=== PATIENT | female | born 1955 | race African-American/Black ===

== ENCOUNTER 2020-02-12 09:52 | Outpatient (CLI) | payer MEDICARE, SELFPAY ==
--- NOTE | ~2020-02-12 | MR_ITS ---
MR breast BI wo/w con 02/12/2020 12:02 CDT INDICATION: Left breast cancer TECHNIQUE: MRI of the breasts perform using standard protocol pre-and post IV contrast with the follo wing sequences: Axial T2 STIR, axial T1, axial vibrant T1 with fat suppression precontrast and multip hasic postcontrast. COMPARISON: No prior studies for comparison. FINDINGS: There are no abnormalities on the precontrast sequences. There is moderate background paren chymal enhancement. No enhancing lesions following contrast administration. No areas of enhancement meeting threshold criteria on CAD analysis. No evidence of signal abnormalities in the axillary or internal mammary node distributions. LEFT BREAST: There is moderate background parenchymal enhancement. There is an enhancing mass in the upper outer quadrant of the left breast 8.2 cm from the nipple and 0.84 cm from the skin surface. Thi s mass measures 2 x 1.5 x 1.6 cm and exhibits rapid washout enhancement. This likely corresponds to t he patient's known malignancy. There is an adjacent area of nonmass-like enhancement with clumped nod ular configuration measuring 1.9 x 0.6 x 2.4 cm in the lower outer quadrant of the left breast, 9.7 c m from the nipple and 1.2 cm from the skin surface. There is rapid washout enhancement. This area of abnormality is suspicious for local spread of malignancy. In the upper outer quadrant of the left casimiro ast at 1:00 anteriorly there is a mass measuring 1.6 x 1.3 x 1.6 cm, 5.8 cm from the nipple and 0.78 cm from the skin surface. There is rapid persistent enhancement. There are multiple borderline size l eft axillary lymph nodes some of which appear to have effacement of the fatty hilum. Cannot exclude m etastatic disease. IMPRESSION: 1: Right breast: Negative. No evidence of malignancy. BI-RADS category 1. Recommend annual mammo graphy follow-up. 2: Left breast: Abnormal 2 cm mass upper outer quadrant of the left breast with rapid washout enhanc ement and irregular margins, likely corresponding to the known malignancy. There is clumped nodular e nhancement in the lower outer quadrant of the left breast adjacent to the dominant mass, suspicious f or local spread of tumor. There are borderline sized axillary lymph nodes with effacement of central fatty hilum and a few of the lymph nodes, suspicious for metastatic disease. 3: Left breast: 1.6 cm round homogeneously enhancing mass upper outer quadrant of the left breast an teriorly, likely benign. Recommend comparison to outside prior mammograms and ultrasound. BI-RADS category 6- Known biopsy proven malignancyy. Reviewed, dictated and finalized at location A. IMPRESSION: 1: Right breast: Negative. No evidence of malignancy. BI-RADS category 1. Recommend annual mammography follow-up. 2: Left breast: Abnormal 2 cm mass upper outer quadrant of the left breast wit h rapid washout enhancement and irregular margins, likely corresponding to the known malignancy. There is clumped nodular enhancement in the lower outer quadr ant of the left breast adjacent to the dominant mass, suspicious for local spre ad of tumor. There are borderline sized axillary lymph nodes with effacement of central fatty hilum and a few of the lymph nodes, suspicious for metastatic di sease. 3: Left breast: 1.6 cm round homogeneously enhancing mass upper outer quadrant of the left breast anteriorly, likely benign. Recommend comparison to outside prior mammograms and ultrasound. BI-RADS category 6- Known biopsy proven malignancyy.
[2020-02-12 10:26] LABS: Estimated Glomerular Filt Rate > 60
== END 2020-02-12 09:53 | disposition home or self-care (01) ==
PROVIDERS: PCP Internal Medicine; Visit Provider Internal Medicine Hematology & Oncology
DX: C50.412 Malignant neoplasm of upper-outer quadrant of left female breast (principal); Z17.0 Estrogen receptor positive status [ER+]
CPT/HCPCS: 36415; 77049; A9577; C8908

== ENCOUNTER 2020-08-27 08:03 | Outpatient (CLI) | payer MEDICARE, SELFPAY ==
[2020-08-27 09:02] LABS: Basophils Percent Auto 0.5 % (0.2-1.2); Eosinophils Absolute Auto 0.1 K/mm3 (0-0.3); Eosinophils Percent Auto 2.2 % (0-4.4); Hematocrit 39.4 % (37.0-47.0); Hemoglobin 12.5 g/dL (12.0-15.0); Immature Granulocyte Absolute 0.02 K/mm3 (0.00-0.031); Immature Granulocyte Percent A 0.3 % (0-0.5); Lymphocytes Absolute Auto 2.46 K/mm3 (0.9-3.2); Lymphocytes Percent Auto 39.1 % (18.3-44.2); Mean Corpuscular HGB Conc 31.7 g/dl (32-36); Mean Corpuscular Hemoglobin 29.5 pg (26-34); Mean Corpuscular Volume 92.9 fl (80-100); Mean Platelet Volume 9.9 fl (7.4-10.4); Monocytes Absolute Auto 0.5 K/mm3 (0.1-0.6); Monocytes Percent Auto 8.4 % (2.6-8.5); Neutrophils Absolute Auto 3.1 K/mm3 (1.3-6.7); Neutrophils Percent Auto 49.5 % (45.5-73.1); Platelet Count Result 225 k/mm3 (150-375); Red Blood Count 4.24 M/mm3 (4.2-5.4); Red Cell Distribution Width 13.2 % (11.5-14.5); White Blood Count 6.3 K/mm3 (4.5-10.0)
[2020-08-27 12:15] LABS: Add Urine Microscopic? YES; Appearance Urine Clear (Clear); Bacteria Urine Trace /hpf; Bilirubin Urine Negative (Negative); Blood Urine Negative (Negative); Color Urine Yellow (Yellow); Glucose Urine UA Negative (Negative); Ketones Urine Negative (Negative); Leukocyte Esterase Ur Negative LEU/UL (NEGATIVE); Mucus Urine Rare /lpf; Nitrate Urine Negative (Negative); Protein Urine 1+ mg/dL (Negative); RBC Urine 0-2 /hpf (0-2); Specific Grav Ur 1.028 (1.001-1.035); Squamous Epithelial Cell Urine Few /hpf (Few); Urobilinogen Urine Negative mg/dL (<2.0)
[2020-08-27 12:22] LABS: Alanine Aminotransferase 16 U/L (4-35); Albumin Level 3.9 g/dL (3.5-5.1); Alkaline Phosphatase 66 U/L (38-126); Anion Gap 4 mmol/L (8-16); Aspartate Amino Transferase 24 U/L (14-36); Bilirubin,Total 0.4 mg/dL (0.2-1.3); Blood Urea Nitrogen 19 mg/dL (7-17); Calcium 9.3 mg/dL (8.4-10.2); Carbon Dioxide 33 mmol/L (22-30); Chloride 101 mmol/L (98-107); Cholesterol 205 mg/dL (0-200); Estimated Glomerular Filt Rate > 60; Glucose 97 mg/dL (65-105); HDL Direct 63 mg/dL; Potassium 4.2 mmol/L (3.4-5.0); Sodium 138 mmol/L (137-145); Triglycerides 68 mg/dL (<150)
[2020-08-27 12:23] LABS: Hemoglobin A1C 5.8 % (<5.7)
[2020-08-27 12:33] LABS: LDL Cholesterol Direct 126 mg/dL
[2020-08-27 13:22] LABS: Vitamin D 25 Hydroxy 18.4 ng/mL
[2020-08-28 09:19] LABS: Blood Urea Nitrogen 18 mg/dL (8-26); Carbon Dioxide 31 mmol/L (22-30); Chloride 102 mmol/L (98-109); Estimated Glomerular Filt Rate > 60; Potassium 3.9 mmol/L (3.5-4.9); Sodium 142 mmol/L (138-146)
[2020-08-28 09:20] LABS: Glucose 95 mg/dL (70-105)
[2020-09-01 14:05] LABS: CA 15-3 7 U/mL (<32)
== END 2020-08-27 08:04 | disposition home or self-care (01) ==
PROVIDERS: PCP Internal Medicine; Visit Provider Internal Medicine Hematology & Oncology
DX: C50.412 Malignant neoplasm of upper-outer quadrant of left female breast (principal); Z17.0 Estrogen receptor positive status [ER+]; I10 Essential (primary) hypertension; R73.01 Impaired fasting glucose
CPT/HCPCS: 36415; 73030; 80048; 80053; 80061; 81001; 82306; 83036; 85025; 86300

== ENCOUNTER 2020-08-27 12:47 | Outpatient (CLI) | payer MEDICARE, SELFPAY ==
--- NOTE | ~2020-08-27 | XR_ITS ---
XR shoulder LT min 2V DATE: 08/27/2020 13:16 INDICATION: Malignant neoplasm of upper outer quadrant of left breast. Left shoulder pain. TECHNIQUE: 4 views COMPARISON: None FINDINGS: Old left fifth and sixth rib fracture deformities. No fracture or dislocation of the left shoulder. No periosteal reaction or bone destruction. There is normal alignment at the acromioclavicular and glenohumeral joints. No abnormal left shoulder soft ti ssue calcification. IMPRESSION: No significant abnormality of the left shoulder Reviewed, dictated and finalized at location A. TUB TENDER
== END 2020-08-27 12:48 | disposition home or self-care (01) ==
PROVIDERS: PCP Internal Medicine; Visit Provider Nurse Practitioner Adult Health
DX: C50.412 Malignant neoplasm of upper-outer quadrant of left female breast (principal); Z17.0 Estrogen receptor positive status [ER+]
CPT/HCPCS: 73030

== ENCOUNTER 2020-09-07 10:16 | Outpatient (CLI) | payer MEDICARE, SELFPAY ==
--- NOTE | ~2020-09-07 | MR_ITS ---
EXAMINATION: MR shoulder LT wo/w con DATE: 09/07/2020 12:32 INDICATION: Malignant neoplasm of upper outer quadrant of left breast. Left shoulder pain and weaknes s. TECHNIQUE: Magnetic resonance imaging (MRI) of the left shoulder was performed without and with 16 mm MultiHance intravenous contrast. Sequences included axial T1-weighted FS FSE, T1-weighted FSE, and P D-weighted FS FSE, coronal oblique PD-weighted FS FSE and T2-weighted FS FSE, sagittal oblique T2-charu ghted FS FSE and T1-weighted FSE, and axial and coronal oblique postcontrast T1-weighted FS FSE. COMPARISON: Left shoulder radiograph 08/27/2020 FINDINGS: Coracoacromial arch: The acromion undersurface is curved in morphology (type II). There is severe acromioclavicular joint osteoarthritis including inferior directed osteophytes. There is moderate subacromial/subdeltoid burs itis with synovitis. Rotator cuff: There is a full-thickness tear of supraspinatus tendon measuring 14 mm anterior to posterior by 25 mm proximal to distal. There is severe infraspinatus tendinopathy. Teres minor tendon is normal. There is mild subscapularis tendinopathy. There is no asymmetric fatty atrophy of the rotator cuff muscle b ellerik. Biceps tendon and glenoid labrum: Biceps tendon is in bicipital groove. There is a partial tear of biceps tendon, which is not well-vis ualized due to motion artifact. Fluid: There is a small glenohumeral joint effusion with synovitis. Bones/cartilage: The glenoid cartilage and humeral head cartilage are normal, but motion artifact decreases sensitivit y. IMPRESSION: 1. Full-thickness rotator cuff tear. 2. Partial tear of proximal biceps tendon. 3. Severe acromioclavicular joint osteoarthritis. 4. Small glenohumeral joint effusion and moderate subacromial/subdeltoid bursitis with synovitis. Reviewed, dictated and finalized at location A. SPECIALIST IMPRESSION: 1. Full-thickness rotator cuff tear. 2. Partial tear of proximal biceps tendon. 3. Severe acromioclavicular joint osteoarthritis. 4. Small glenohumeral joint effusion and moderate subacromial/subdeltoid bursit is with synovitis.
== END 2020-09-07 10:17 | disposition home or self-care (01) ==
LOC: ANHIMG 10:25
PROVIDERS: PCP Internal Medicine; Visit Provider Nurse Practitioner Adult Health
DX: C50.412 Malignant neoplasm of upper-outer quadrant of left female breast (principal); Z17.0 Estrogen receptor positive status [ER+]; M19.012 Primary osteoarthritis, left shoulder; M25.412 Effusion, left shoulder; M75.122 Complete rotator cuff tear or rupture of left shoulder, not specified as traumatic
CPT/HCPCS: 73223; A9577

== ENCOUNTER 2021-01-28 08:24 | Outpatient (CLI) | payer MEDICARE, SELFPAY ==
[2021-01-28 08:50] LABS: Basophils Percent Auto 0.4 % (0.2-1.2); Eosinophils Absolute Auto 0.1 K/mm3 (0-0.3); Eosinophils Percent Auto 1.8 % (0-4.4); Hematocrit 39.3 % (37.0-47.0); Hemoglobin 12.5 g/dL (12.0-15.0); Immature Granulocyte Absolute 0.02 K/mm3 (0.00-0.031); Immature Granulocyte Percent A 0.4 % (0-0.5); Lymphocytes Absolute Auto 2.42 K/mm3 (0.9-3.2); Lymphocytes Percent Auto 42.8 % (18.3-44.2); Mean Corpuscular HGB Conc 31.8 g/dl (32-36); Mean Corpuscular Hemoglobin 29.8 pg (26-34); Mean Corpuscular Volume 93.6 fl (80-100); Mean Platelet Volume 10.2 fl (7.4-10.4); Monocytes Absolute Auto 0.4 K/mm3 (0.1-0.6); Monocytes Percent Auto 6.9 % (2.6-8.5); Neutrophils Absolute Auto 2.7 K/mm3 (1.3-6.7); Neutrophils Percent Auto 47.7 % (45.5-73.1); Platelet Count Result 244 k/mm3 (150-375); Red Cell Distribution Width 13.3 % (11.5-14.5); White Blood Count 5.7 K/mm3 (4.5-10.0)
[2021-01-28 10:40] LABS: Alanine Aminotransferase 13 U/L (4-35); Albumin Level 3.9 g/dL (3.5-5.1); Alkaline Phosphatase 60 U/L (38-126); Anion Gap 5 mmol/L (8-16); Aspartate Amino Transferase 19 U/L (14-36); Bilirubin,Total 0.2 mg/dL (0.2-1.3); Blood Urea Nitrogen 20 mg/dL (7-17); Calcium 9.6 mg/dL (8.4-10.2); Carbon Dioxide 32 mmol/L (22-30); Chloride 106 mmol/L (98-107); Estimated Glomerular Filt Rate > 60; Glucose 108 mg/dL (65-105); Potassium 4.6 mmol/L (3.4-5.0); Sodium 143 mmol/L (137-145)
[2021-01-31 08:32] LABS: CA 15-3 8 U/mL (<32)
== END 2021-01-28 08:25 | disposition home or self-care (01) ==
LOC: ANHLAB 08:26
PROVIDERS: PCP Internal Medicine; Visit Provider Internal Medicine Hematology & Oncology
DX: C50.412 Malignant neoplasm of upper-outer quadrant of left female breast (principal); Z17.0 Estrogen receptor positive status [ER+]
CPT/HCPCS: 36415; 80053; 85025; 86300

== ENCOUNTER 2021-08-23 09:31 | Outpatient (CLI) | payer MEDICARE, SELFPAY ==
[2021-08-23 09:53] LABS: Basophils Percent Auto 0.6 % (0.2-1.2); Eosinophils Absolute Auto 0.1 K/mm3 (0-0.3); Eosinophils Percent Auto 1.6 % (0-4.4); Hematocrit 39.7 % (37.0-47.0); Hemoglobin 12.1 g/dL (12.0-15.0); Immature Granulocyte Absolute 0.02 K/mm3 (0.00-0.031); Immature Granulocyte Percent A 0.3 % (0-0.5); Lymphocytes Absolute Auto 2.44 K/mm3 (0.9-3.2); Lymphocytes Percent Auto 38.1 % (18.3-44.2); Mean Corpuscular HGB Conc 30.5 g/dl (32-36); Mean Corpuscular Hemoglobin 29.4 pg (26-34); Mean Corpuscular Volume 96.6 fl (80-100); Mean Platelet Volume 9.7 fl (7.4-10.4); Monocytes Absolute Auto 0.4 K/mm3 (0.1-0.6); Monocytes Percent Auto 6.2 % (2.6-8.5); Neutrophils Absolute Auto 3.4 K/mm3 (1.3-6.7); Neutrophils Percent Auto 53.2 % (45.5-73.1); Platelet Count Result 232 k/mm3 (150-375); Red Blood Count 4.11 M/mm3 (4.2-5.4); Red Cell Distribution Width 13.6 % (11.5-14.5); White Blood Count 6.4 K/mm3 (4.5-10.0)
[2021-08-23 10:56] LABS: Alanine Aminotransferase 16 U/L (4-35); Albumin Level 3.9 g/dL (3.5-5.1); Alkaline Phosphatase 68 U/L (38-126); Anion Gap 5 mmol/L (8-16); Aspartate Amino Transferase 19 U/L (14-36); Bilirubin,Total 0.3 mg/dL (0.2-1.3); Blood Urea Nitrogen 18 mg/dL (7-17); Calcium 9.2 mg/dL (8.4-10.2); Carbon Dioxide 31 mmol/L (22-30); Chloride 99 mmol/L (98-107); Estimated Glomerular Filt Rate > 60; Glucose 147 mg/dL (65-110); Potassium 4.2 mmol/L (3.4-5.0); Sodium 135 mmol/L (137-145)
[2021-08-26 05:50] LABS: CA 15-3 7 U/mL (<32)
== END 2021-08-23 09:32 | disposition home or self-care (01) ==
LOC: ANHLAB 09:35
PROVIDERS: PCP Internal Medicine; Visit Provider Internal Medicine Hematology & Oncology
DX: C50.412 Malignant neoplasm of upper-outer quadrant of left female breast (principal); Z17.0 Estrogen receptor positive status [ER+]
CPT/HCPCS: 36415; 80053; 85025; 86300

== ENCOUNTER 2021-10-06 08:38 | Outpatient (CLI) | payer MEDICARE, SELFPAY ==
[2021-10-06 09:01] LABS: Basophils Percent Auto 0.5 % (0.2-1.2); Eosinophils Absolute Auto 0.1 K/mm3 (0-0.3); Eosinophils Percent Auto 2.4 % (0-4.4); Hematocrit 39.1 % (37.0-47.0); Hemoglobin 12.1 g/dL (12.0-15.0); Immature Granulocyte Absolute 0.02 K/mm3 (0.00-0.031); Immature Granulocyte Percent A 0.3 % (0-0.5); Lymphocytes Absolute Auto 2.29 K/mm3 (0.9-3.2); Lymphocytes Percent Auto 39.7 % (18.3-44.2); Mean Corpuscular HGB Conc 30.9 g/dl (32-36); Mean Corpuscular Hemoglobin 29.4 pg (26-34); Mean Corpuscular Volume 95.1 fl (80-100); Mean Platelet Volume 10.2 fl (7.4-10.4); Monocytes Absolute Auto 0.4 K/mm3 (0.1-0.6); Monocytes Percent Auto 6.9 % (2.6-8.5); Neutrophils Absolute Auto 2.9 K/mm3 (1.3-6.7); Neutrophils Percent Auto 50.2 % (45.5-73.1); Platelet Count Result 225 k/mm3 (150-375); Red Blood Count 4.11 M/mm3 (4.2-5.4); Red Cell Distribution Width 13.5 % (11.5-14.5); White Blood Count 5.8 K/mm3 (4.5-10.0)
[2021-10-06 10:09] LABS: Cholesterol 193 mg/dL (0-200); HDL Direct 56 mg/dL; Triglycerides 52 mg/dL (<150)
[2021-10-06 10:13] LABS: Alanine Aminotransferase 17 U/L (4-35); Alkaline Phosphatase 60 U/L (38-126); Anion Gap 6 mmol/L (8-16); Aspartate Amino Transferase 33 U/L (14-36); Bilirubin,Total 0.3 mg/dL (0.2-1.3); Blood Urea Nitrogen 19 mg/dL (7-17); Calcium 9.3 mg/dL (8.4-10.2); Carbon Dioxide 32 mmol/L (22-30); Chloride 102 mmol/L (98-107); Estimated Glomerular Filt Rate > 60; Glucose 102 mg/dL (65-110); Hemoglobin A1C 5.9 % (<5.7); Potassium 4.2 mmol/L (3.4-5.0); Sodium 140 mmol/L (137-145)
[2021-10-06 10:21] LABS: LDL Cholesterol Direct 105 mg/dL
[2021-10-09 05:48] LABS: CA 15-3 9 U/mL (<32)
== END 2021-10-06 08:39 | disposition home or self-care (01) ==
LOC: ANHLAB 08:44
PROVIDERS: PCP Internal Medicine; Visit Provider Internal Medicine Hematology & Oncology
DX: C50.412 Malignant neoplasm of upper-outer quadrant of left female breast (principal); Z17.0 Estrogen receptor positive status [ER+]; Z13.1 Encounter for screening for diabetes mellitus; Z13.220 Encounter for screening for lipoid disorders; R73.01 Impaired fasting glucose; Z51.81 Encounter for therapeutic drug level monitoring; Z79.899 Other long term (current) drug therapy
CPT/HCPCS: 36415; 80053; 80061; 83036; 85025; 86300

== ENCOUNTER 2021-12-23 08:57 | Outpatient (CLI) | payer MEDICARE, SELFPAY ==
[2021-12-23 09:26] LABS: Basophils Percent Auto 0.5 % (0.2-1.2); Eosinophils Absolute Auto 0.1 K/mm3 (0-0.3); Eosinophils Percent Auto 2.2 % (0-4.4); Hematocrit 39.5 % (37.0-47.0); Hemoglobin 12.1 g/dL (12.0-15.0); Immature Granulocyte Absolute 0.01 K/mm3 (0.00-0.031); Immature Granulocyte Percent A 0.2 % (0-0.5); Lymphocytes Absolute Auto 2.43 K/mm3 (0.9-3.2); Lymphocytes Percent Auto 41.1 % (18.3-44.2); Mean Corpuscular HGB Conc 30.6 g/dl (32-36); Mean Corpuscular Hemoglobin 29.3 pg (26-34); Mean Corpuscular Volume 95.6 fl (80-100); Mean Platelet Volume 9.9 fl (7.4-10.4); Monocytes Absolute Auto 0.4 K/mm3 (0.1-0.6); Monocytes Percent Auto 7.1 % (2.6-8.5); Neutrophils Absolute Auto 2.9 K/mm3 (1.3-6.7); Neutrophils Percent Auto 48.9 % (45.5-73.1); Platelet Count Result 237 k/mm3 (150-375); Red Blood Count 4.13 M/mm3 (4.2-5.4); Red Cell Distribution Width 13.6 % (11.5-14.5); White Blood Count 5.9 K/mm3 (4.5-10.0)
[2021-12-23 10:58] LABS: Alanine Aminotransferase 14 U/L (4-35); Albumin Level 3.9 g/dL (3.5-5.1); Alkaline Phosphatase 58 U/L (38-126); Anion Gap 5 mmol/L (8-16); Aspartate Amino Transferase 24 U/L (14-36); Bilirubin,Total 0.3 mg/dL (0.2-1.3); Blood Urea Nitrogen 19 mg/dL (7-17); Calcium 9.1 mg/dL (8.4-10.2); Carbon Dioxide 30 mmol/L (22-30); Chloride 103 mmol/L (98-107); Estimated Glomerular Filt Rate > 60; Glucose 97 mg/dL (65-110); Sodium 138 mmol/L (137-145)
[2021-12-26 12:12] LABS: CA 15-3 7 U/mL (<32)
== END 2021-12-23 08:58 | disposition home or self-care (01) ==
PROVIDERS: PCP Internal Medicine; Visit Provider Internal Medicine Hematology & Oncology
DX: C50.412 Malignant neoplasm of upper-outer quadrant of left female breast (principal); Z17.0 Estrogen receptor positive status [ER+]
CPT/HCPCS: 36415; 80053; 85025; 86300

== ENCOUNTER 2022-06-20 09:06 | Outpatient (CLI) | payer MEDICARE, SELFPAY ==
[2022-06-20 09:39] LABS: Basophils Absolute Auto 0.1 K/mm3 (0.0-0.1); Basophils Percent Auto 0.9 % (0.2-1.2); Eosinophils Absolute Auto 0.2 K/mm3 (0-0.3); Eosinophils Percent Auto 3.3 % (0-4.4); Hematocrit 38.5 % (37.0-47.0); Immature Granulocyte Absolute 0.03 K/mm3 (0.00-0.031); Immature Granulocyte Percent A 0.4 % (0-0.5); Lymphocytes Absolute Auto 3.01 K/mm3 (0.9-3.2); Lymphocytes Percent Auto 43.2 % (18.3-44.2); Mean Corpuscular HGB Conc 31.2 g/dl (32-36); Mean Corpuscular Hemoglobin 29.3 pg (26-34); Mean Corpuscular Volume 93.9 fl (80-100); Monocytes Absolute Auto 0.4 K/mm3 (0.1-0.6); Monocytes Percent Auto 6.2 % (2.6-8.5); Neutrophils Absolute Auto 3.2 K/mm3 (1.3-6.7); Platelet Count Result 246 k/mm3 (150-375); Red Cell Distribution Width 13.1 % (11.5-14.5)
[2022-06-20 11:59] LABS: Alanine Aminotransferase 19 U/L (6-35); Alkaline Phosphatase 66 U/L (38-126); Anion Gap 7 mmol/L (8-16); Aspartate Amino Transferase 24 U/L (14-36); Bilirubin,Total 0.2 mg/dL (0.2-1.3); Blood Urea Nitrogen 17 mg/dL (7-17); Calcium 9.3 mg/dL (8.4-10.2); Carbon Dioxide 30 mmol/L (22-30); Chloride 103 mmol/L (98-107); Estimated Glomerular Filt Rate > 60; Glucose 103 mg/dL (65-110); Potassium 4.3 mmol/L (3.4-5.0); Sodium 140 mmol/L (137-145)
[2022-06-22 12:54] LABS: CA 15-3 10 U/mL (<32)
== END 2022-06-20 09:07 | disposition home or self-care (01) ==
LOC: ANHLAB 09:08
PROVIDERS: PCP Internal Medicine; Visit Provider Internal Medicine Hematology & Oncology
DX: C50.412 Malignant neoplasm of upper-outer quadrant of left female breast (principal); Z17.0 Estrogen receptor positive status [ER+]
CPT/HCPCS: 36415; 80053; 85025; 86300

== ENCOUNTER 2023-02-28 08:40 | Outpatient (CLI) | payer MEDICARE, SELFPAY ==
--- NOTE | ~2023-02-28 | DEXA_ITS ---
Bone Density Report Name: ZAK ADAMS Age: 67 Sex: Female Ethnicity: Black Date of : 1955 Indication: postmenopausal; screening for osteoporosis; cancer; Referring Provider: PHYLLIS FREEMAN Study: Bone densitometry was performed. Exam Date: February 28, 2023 Accession number: [id number] Bone Density: Region BMD T-score Z-score Classification AP Spine(L1-L4) 0.910 -1.2 0.1 Osteopenia Femoral Neck (Left) 0.808 -0.4 0.4 Normal Total Hip (Left) 1.009 0.5 1.0 Normal Femoral Neck (Right) 0.771 -0.7 0.1 Normal Total Hip (Right) 1.017 0.6 1.0 Normal Total Hip Mean 1.013 0.6 1.0 Normal World Health Organization criteria for BMD impression classify patients as: Normal (T-score at or above -1.0), Osteopenia (T-score between -1.0 and -2.5), or Osteoporosis (T-score at or below -2.5). 10-year Fracture Risk(1): Major Osteoporotic Fracture 3.4% Hip Fracture 0.3% Reported Risk Factors: [place] ([place]), Neck BMD=0.771, BMI=34.2 (1) FRAX(R) Version 3.08. Fracture probability calculated for an untreated patient. Fracture probability may be lower if the patient has received treatment. Clinical Information Provided by Patient: Has used the following medications: Calcium Has the following medical conditions: Cancer Patient maximum height was 63 Menopause Age: 50 Onset of menses at age 13 Number of children 7 Impression: The patient has low bone mass, based on the Total Spine T-score. The patient has an estimated ten-year risk of hip fracture of 0.3% and an estimated ten-year risk of major fracture of 3.4%, based on the WHO FRAX algorithm. Discussion: BONE DENSITY IS LOW AT ONE OR MORE SKELETAL SITES. This patient's lowest T-score is low at one or more skeletal sites. It meets the World Health Organization's (WHO) criteria for ?low bone mass? (T-score between -1.0 and -2.5). The patient's 10-year risk of fracture as calculated by FRAX is less than the threshold where pharmacological therapy is recommended by the National Osteoporosis Foundation (NOF). However, all treatment decisions require clinical judgment and consideration of individual patient factors, including patient preferences, comorbidities, previous drug use, risk factors not captured in the FRAX model (e.g., frailty, falls, vitamin D deficiency, increased bone turnover, interval significant decline in bone density) and possible under or overestimation of fracture risk by FRAX. The patient should follow a healthful lifestyle (good nutrition with adequate calcium and vitamin D, and appropriate weight-bearing exercise). Follow-Up: Consider repeating this study in 2 to 3 years to reassess this patient's status, or sooner if there is some new clinical indication. Reported by: ANDRES on 02/28/2023 9:13:00 AM.
== END 2023-02-28 08:41 | disposition home or self-care (01) ==
PROVIDERS: PCP Internal Medicine; Visit Provider Internal Medicine
DX: Z78.0 Asymptomatic menopausal state (principal); M85.88 Other specified disorders of bone density and structure, other site
CPT/HCPCS: 77080

== ENCOUNTER 2023-04-29 08:28 | Outpatient (CLI) | payer MEDICARE, SELFPAY ==
[2023-04-29 09:11] LABS: Alanine Aminotransferase 19 U/L (6-35); Alkaline Phosphatase 59 U/L (38-126); Anion Gap 3 mmol/L (8-16); Aspartate Amino Transferase 38 U/L (14-36); Bilirubin,Total 0.4 mg/dL (0.2-1.3); Blood Urea Nitrogen 16 mg/dL (7-17); Calcium 9.1 mg/dL (8.4-10.2); Carbon Dioxide 33 mmol/L (22-30); Chloride 101 mmol/L (98-107); Cholesterol 193 mg/dL (0-200); Estimated Glomerular Filt Rate > 60; Glucose 98 mg/dL (65-110); HDL Direct 54 mg/dL; Phosphorus 4.1 mg/dL (2.5-4.5); Potassium 4.2 mmol/L (3.4-5.0); Sodium 137 mmol/L (137-145); Triglycerides 58 mg/dL (<150)
[2023-04-29 09:21] LABS: LDL Cholesterol Direct 103 mg/dL
[2023-04-29 09:37] LABS: Vitamin D 25 Hydroxy 39.8 ng/mL
== END 2023-04-29 08:29 | disposition home or self-care (01) ==
PROVIDERS: PCP Internal Medicine; Visit Provider Internal Medicine
DX: R73.01 Impaired fasting glucose (principal); E78.5 Hyperlipidemia, unspecified; M85.80 Other specified disorders of bone density and structure, unspecified site; I10 Essential (primary) hypertension
CPT/HCPCS: 36415; 80061; 80069; 80076; 82306; 83036

== ENCOUNTER 2023-07-05 08:36 | Outpatient (CLI) | payer MEDICARE, SELFPAY ==
[2023-07-05 08:51] LABS: Basophils Percent Auto 0.6 % (0.2-1.2); Eosinophils Absolute Auto 0.2 K/mm3 (0-0.3); Eosinophils Percent Auto 2.8 % (0-4.4); Hematocrit 38.8 % (37.0-47.0); Hemoglobin 12.2 g/dL (12.0-15.0); Immature Granulocyte Absolute 0.03 K/mm3 (0.00-0.031); Immature Granulocyte Percent A 0.5 % (0-0.5); Lymphocytes Absolute Auto 2.79 K/mm3 (0.9-3.2); Lymphocytes Percent Auto 43.4 % (18.3-44.2); Mean Corpuscular HGB Conc 31.4 g/dl (32-36); Mean Corpuscular Hemoglobin 29.6 pg (26-34); Mean Corpuscular Volume 94.2 fl (80-100); Monocytes Absolute Auto 0.5 K/mm3 (0.1-0.6); Neutrophils Absolute Auto 2.9 K/mm3 (1.3-6.7); Neutrophils Percent Auto 45.7 % (45.5-73.1); Platelet Count Result 233 k/mm3 (150-375); Red Blood Count 4.12 M/mm3 (4.2-5.4); Red Cell Distribution Width 13.2 % (11.5-14.5); White Blood Count 6.4 K/mm3 (4.5-10.0)
[2023-07-05 12:08] LABS: Alanine Aminotransferase 18 U/L (6-35); Albumin Level 4.1 g/dL (3.5-5.1); Alkaline Phosphatase 59 U/L (38-126); Anion Gap 2 mmol/L (8-16); Aspartate Amino Transferase 53 U/L (14-36); Bilirubin,Total 0.4 mg/dL (0.2-1.3); Blood Urea Nitrogen 19 mg/dL (7-17); Calcium 8.8 mg/dL (8.4-10.2); Carbon Dioxide 32 mmol/L (22-30); Chloride 105 mmol/L (98-107); Estimated Glomerular Filt Rate > 60; Glucose 94 mg/dL (65-110); Potassium 4.4 mmol/L (3.4-5.0); Sodium 139 mmol/L (137-145)
[2023-07-11 11:47] LABS: CA 15-3 11 U/mL (<32)
== END 2023-07-05 08:37 | disposition home or self-care (01) ==
LOC: ANHLAB 08:38
PROVIDERS: PCP Internal Medicine; Visit Provider Internal Medicine Hematology & Oncology
DX: C50.412 Malignant neoplasm of upper-outer quadrant of left female breast (principal); Z17.0 Estrogen receptor positive status [ER+]
CPT/HCPCS: 36415; 80053; 85025; 86300

== ENCOUNTER 2024-02-05 08:48 | Outpatient (CLI) | payer MEDICARE, SELFPAY ==
[2024-02-05 09:01] LABS: Basophils Percent Auto 0.4 % (0.2-1.2); Eosinophils Absolute Auto 0.2 K/mm3 (0-0.3); Eosinophils Percent Auto 2.2 % (0-4.4); Hematocrit 36.7 % (37.0-47.0); Hemoglobin 11.9 g/dL (12.0-15.0); Immature Granulocyte Absolute 0.01 K/mm3 (0.00-0.031); Immature Granulocyte Percent A 0.1 % (0-0.5); Lymphocytes Absolute Auto 2.56 K/mm3 (0.9-3.2); Lymphocytes Percent Auto 37.5 % (18.3-44.2); Mean Corpuscular HGB Conc 32.4 g/dl (32-36); Mean Corpuscular Volume 92.4 fl (80-100); Mean Platelet Volume 10.3 fl (7.4-10.4); Monocytes Absolute Auto 0.6 K/mm3 (0.1-0.6); Monocytes Percent Auto 8.3 % (2.6-8.5); Neutrophils Absolute Auto 3.5 K/mm3 (1.3-6.7); Neutrophils Percent Auto 51.5 % (45.5-73.1); Platelet Count Result 221 k/mm3 (150-375); Red Blood Count 3.97 M/mm3 (4.2-5.4); Red Cell Distribution Width 13.3 % (11.5-14.5); White Blood Count 6.8 K/mm3 (4.5-10.0)
[2024-02-05 10:27] LABS: Alanine Aminotransferase 17 U/L (6-35); Albumin Level 4.2 g/dL (3.5-5.1); Alkaline Phosphatase 58 U/L (38-126); Anion Gap 8 mmol/L (4-12); Aspartate Amino Transferase 23 U/L (14-36); Bilirubin,Total 0.5 mg/dL (0.2-1.3); Blood Urea Nitrogen 18 mg/dL (7-17); Calcium 9.4 mg/dL (8.4-10.2); Carbon Dioxide 25 mmol/L (22-30); Chloride 106 mmol/L (98-107); Estimated Glomerular Filt Rate > 60; Glucose 101 mg/dL (65-110); Potassium 3.7 mmol/L (3.4-5.0); Sodium 139 mmol/L (137-145)
[2024-02-06 13:53] LABS: CA 15-3 10 U/mL (<32)
== END 2024-02-05 08:49 | disposition home or self-care (01) ==
LOC: ANHLAB 08:50
PROVIDERS: PCP Internal Medicine; Visit Provider Internal Medicine Hematology & Oncology
DX: C50.412 Malignant neoplasm of upper-outer quadrant of left female breast (principal); Z17.0 Estrogen receptor positive status [ER+]
CPT/HCPCS: 36415; 80053; 85025; 86300

== ENCOUNTER 2024-05-30 08:18 | Outpatient (CLI) | payer MEDICARE, SELFPAY ==
[2024-05-30 08:43] LABS: Basophils Percent Auto 0.5 % (0.2-1.2); Eosinophils Absolute Auto 0.1 K/mm3 (0-0.3); Hematocrit 37.9 % (37.0-47.0); Hemoglobin 12.1 g/dL (12.0-15.0); Immature Granulocyte Absolute 0.02 K/mm3 (0.00-0.031); Immature Granulocyte Percent A 0.3 % (0-0.5); Lymphocytes Absolute Auto 2.49 K/mm3 (0.9-3.2); Lymphocytes Percent Auto 42.3 % (18.3-44.2); Mean Corpuscular HGB Conc 31.9 g/dl (32-36); Mean Corpuscular Hemoglobin 30.3 pg (26-34); Mean Platelet Volume 9.7 fl (7.4-10.4); Monocytes Absolute Auto 0.5 K/mm3 (0.1-0.6); Neutrophils Absolute Auto 2.8 K/mm3 (1.3-6.7); Neutrophils Percent Auto 46.9 % (45.5-73.1); Platelet Count Result 217 k/mm3 (150-375); Red Blood Count 3.99 M/mm3 (4.2-5.4); Red Cell Distribution Width 13.4 % (11.5-14.5); White Blood Count 5.9 K/mm3 (4.5-10.0)
[2024-05-30 09:59] LABS: Cholesterol 210 mg/dL (0-200); HDL Direct 68 mg/dL; Triglycerides 65 mg/dL (<150)
[2024-05-30 10:02] LABS: Alanine Aminotransferase 17 U/L (6-35); Albumin Level 4.1 g/dL (3.5-5.1); Alkaline Phosphatase 61 U/L (38-126); Anion Gap 6 mmol/L (4-12); Aspartate Amino Transferase 25 U/L (14-36); Bilirubin,Total 0.5 mg/dL (0.2-1.3); Blood Urea Nitrogen 18 mg/dL (7-17); Carbon Dioxide 33 mmol/L (22-30); Chloride 99 mmol/L (98-107); Estimated Glomerular Filt Rate > 60; Glucose 100 mg/dL (65-110); Sodium 138 mmol/L (137-145)
[2024-05-30 10:09] LABS: LDL Cholesterol Direct 100 mg/dL
[2024-05-30 10:54] LABS: Hemoglobin A1C 5.7 % (<5.7)
[2024-06-01 05:39] LABS: CA 15-3 11 U/mL (<32)
== END 2024-05-30 08:19 | disposition home or self-care (01) ==
LOC: ANHLAB 08:19
PROVIDERS: PCP Internal Medicine; Visit Provider Internal Medicine Hematology & Oncology
DX: C50.412 Malignant neoplasm of upper-outer quadrant of left female breast (principal); Z17.0 Estrogen receptor positive status [ER+]; E78.5 Hyperlipidemia, unspecified; R73.01 Impaired fasting glucose
CPT/HCPCS: 36415; 80053; 80061; 83036; 85025; 86300

== ENCOUNTER 2024-12-02 08:27 | Outpatient (CLI) | payer MEDICARE, SELFPAY ==
[2024-12-02 08:50] LABS: Basophils Percent Auto 0.4 % (0.2-1.2); Eosinophils Absolute Auto 0.1 K/mm3 (0-0.3); Eosinophils Percent Auto 2.4 % (0-4.4); Hematocrit 32.9 % (37.0-47.0); Hemoglobin 10.6 g/dL (12.0-15.0); Immature Granulocyte Absolute 0.02 K/mm3 (0.00-0.031); Immature Granulocyte Percent A 0.4 % (0-0.5); Lymphocytes Absolute Auto 2.04 K/mm3 (0.9-3.2); Lymphocytes Percent Auto 38.4 % (18.3-44.2); Mean Corpuscular HGB Conc 32.2 g/dl (32-36); Mean Corpuscular Volume 96.2 fl (80-100); Mean Platelet Volume 9.5 fl (7.4-10.4); Monocytes Absolute Auto 0.5 K/mm3 (0.1-0.6); Monocytes Percent Auto 9.2 % (2.6-8.5); Neutrophils Absolute Auto 2.6 K/mm3 (1.3-6.7); Neutrophils Percent Auto 49.2 % (45.5-73.1); Platelet Count Result 202 k/mm3 (150-375); Red Blood Count 3.42 M/mm3 (4.2-5.4); Red Cell Distribution Width 14.2 % (11.5-14.5); White Blood Count 5.3 K/mm3 (4.5-10.0)
--- OUTSIDE RECORDS SUMMARY | 2024-12-02 08:51 | XMS_ITS | Clinical Summary ---
Author Organization [facility] Address [address] [place] [address] Phone Care Team Providers Care Brass Burnisher Name Role Phone Sharonda Esqueda MD Primary Care Provider [phone] Social History Tobacco Use Types Packs/Day Years Used Date Smoking Tobacco: Never Assessed Comments No Sex and Gender Information Value Date Recorded Sex Assigned at Not on file Legal Sex Female 12:30 AM CDT Gender Identity Not on file Sexual Orientation Not on file Last Filed Vital Signs Vital Sign Reading Time Taken Comments Blood Pressure - - Pulse - - Temperature - - Respiratory Rate - - Oxygen Saturation - - Inhaled Oxygen Concentration - - Weight 83.9 kg (185 lb) 07/13/2019 9:19 AM CDT Height 160 cm (5' 3 ) 07/13/2019 9:19 AM CDT Body Mass Index 32.77 07/13/2019 9:19 AM CDT Plan of Treatment Health Maintenance Due Date Last Done Comments Hepatitis C Virus (HCV) Screening 1955 TdaP Immunization 1955 Colonoscopy 1998 Colorectal Cancer Screening 1998 Cologuard 2003 Immunochemical Fecal Occult Blood 2003 Pneumococcal Immunization (5 0+ years) (1 of 1 - PCV) 2003 Zoster Immunization (1 of 2) 2003 Influenza Immunization (#1) 2024 SARS-COV-2 Immunization (2023- season) 2024 09/28/2021, 02/20/2021, 01/30/2021 Respiratory Syncytial Virus (RSV) Immunization (Adult) (1 - 1-dose 75+ series) 2028 Mammogram Discontinued 01/06/2016 DEXA Bone Density Discontinued 07/13/2019, 01/06/2016 Hepatitis B Immunization Aged Out No longer eligible based on patient's age to complete this topic Meningococcal Immunization (ACWY) Aged Out No longer eligible based on patient's age to complete this topic Rotavirus Immunization Aged Out No lo nger eligible based on patient's age to complete this topic Procedures Procedure Name Priority Date/Time Associated Diagnosis Comments [facility] BONE DENSITOMETRY AXIAL SKELETON Routine 07/13/2019 9:19 AM CDT Osteopenia, unspecified location [facility] SCREENING BILATERAL DIGITAL W CAD Routine 01/06/2016 9:44 AM CDT Encounter for screening mammogram for malignant neoplasm of breast from Last 3 Months or Most Recently Relevant to Health Maintenance Results * [facility] BONE DENSITOMETRY AXIAL SKELETON (07/13/2019 9:19 AM CDT) Anatomical Region Laterality Modality BODY N/A Other 07/13/2019 9:44 AM CDT Impressions 07/13/2019 9:47 AM CDT IMPRESSION: Normal bone mineral density. No significant change from prior DEXA. REFERENCE: Bone mineral density: Normal (T-score above or = -1.0) Low bone mass (T-score between -1.0 and -2.5) replaces the previously used term osteopenia Osteoporosis (T-score = or below -2.5) Medical evaluation for secondary causes of low bone mineral density may be appropriate. FRAX is a World Health Organization validated fracture risk assessment tool that calculates a person's 10 year probability of a major osteoporosis related fracture and hip fracture. According to the National Osteoporosis Foundation guidelines, postmenopausal women and men age 50 or older with low bone mass and a 10 year probability of a major osteoporosis related fracture = or greater than 20% or a 10 year probability of a hip fracture = or greater than 3% should be considered for treatment. For further information, including treatment recommendations, please refer to the 2013 ISCD Official Positions (http://www.iscd.org) and the NOF's Clinician's Guide to Prevention and Treatment of Osteoporosis (http://www.nof.org/professionals/clinical-guidelines) Narrative 07/13/2019 9:47 AM CDT EXAM DESCRIPTION: [facility] BONE DENSITOMETRY AXIAL SKELETON REASON FOR STUDY: 63 year old female with given history of other specified disorders of bone density and structure, unspecified site. 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 LEFT HIP: Current Total BMD is 1.113 g/cm2 T-score is 0.8 Most recent prior Total BMD was 1.143 g/cm2 There has been a 2.6% decrease in BMD which is not statistically significant. Current femoral neck BMD is 0.935 g/cm2 T-score is -0.7 THIS IS AN ELECTRONICALLY VERIFIED FINAL REPORT 07/13/2019 9:44 AM - Electronically signed by Chava Bobo M.D. MD: Report ID: [id number] Reading Location: [id number] Procedure Note Chava Bobo MD - 07/13/2019 EXAM DESCRIPTION: [facility] BONE DENSITOMETRY AXIAL SKELETON REASON FOR STUDY: 63 year old female with given history of other specified disorders of bone density and structure, unspecified site. 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 LEFT HIP: Current Total BMD is 1.113 g/cm2 T-score is 0.8 Most recent prior Total BMD was 1.143 g/cm2 There has been a 2.6% decrease in BMD which is not statistically significant. Current femoral neck BMD is 0.935 g/cm2 T-score is -0.7 THIS IS AN ELECTRONICALLY VERIFIED FINAL REPORT 07/13/2019 9:44 AM - Electronically signed by Chava Bobo M.D. MD: Report ID: [id number] Reading Location: [place] [address] IMPRESSION: Normal bone mineral density. No significant change from prior DEXA. REFERENCE: Bone mineral density: Normal (T-score above or = -1.0) Low bone mass (T-score between -1.0 and -2.5) replaces the previously used term osteopenia Osteoporosis (T-score = or below -2.5) Medical evaluation for secondary causes of low bone mineral density may be appropriate. FRAX is a World Health Organization validated fracture risk assessment tool that calculates a person's 10 year probability of a major osteoporosis related fracture and hip fracture. According to the National Osteoporosis Foundation guidelines, postmenopausal women and men age 50 or older with low bone mass and a 10 year probability of a major osteoporosis related fracture = or greater than 20% or a 10 year probability of a hip fracture = or greater than 3% should be considered for treatment. For further information, including treatment recommendations, please refer to the 2013 ISCD Official Positions (http://www.iscd.org) and the NOF's Clinician's Guide to Prevention and Treatment of Osteoporosis (http://www.nof.org/professionals/clinical-guidelines) us Sharonda Esqueda MD IMG DEXA ORDERABLES Final Resu lt * [facility] SCREENING BILATERAL DIGITAL W CAD (01/06/2016 9:44 AM CDT) Anatomical Region Laterality Modality breast Bilateral Mammography 01/06/2016 9:18 AM CDT Narrative 01/15/2016 5:19 PM CDT - [facility] SCREENING BILATERAL DIGITAL W CAD BILATERAL DIGITAL SCREENING MAMMOGRAM WITH CAD WITH MEDIOLATERAL OBLIQUE CRANIOCAUDAL: 01/06/2016 The study was acquired using digital technology and interpreted from soft copy. Current study was also evaluated with ICAD version 7.2. CLINICAL: Routine screening. Patient has no complaints. No personal history of cancer. No family history of breast cancer. COMPARISONS: Comparison is made to exams dated: 09/22/2014, 09/06/2013, and 08/21/2012 [facility]. BREAST TISSUE: The tissue of both breasts is heterogeneously dense. This may lower the sensitivity of mammography. FINDINGS: There are stable benign well-circumscribed nodules in both breasts. There is a mole marker on the left breast. No significant masses, calcifications, or other findings are seen in either breast. IMPRESSION: BI-RAD 2 BENIGN There is no mammographic evidence of malignancy. A 1 year screening mammogram is recommended. The patient has been or will be contacted. The patient will be entered into a reminder system with a target due date of 1 year for her next screening exam. Electronically signed by: Kristine Watters M.D. pw/:01/14/2016 08:59:57 Log Sorter: Kendra AMBRIZ(Penny)(Clarissa), [facility] letter sent: Normal Exam Reading location: [facility] BI-RADS: 2 Benign Procedure Note Kristine Watters MD - 01/15/2016 - [facility] SCREENING BILATERAL DIGITAL W CAD BILATERAL DIGITAL SCREENING MAMMOGRAM WITH CAD WITH MEDIOLATERAL OBLIQUE CRANIOCAUDAL: 01/06/2016 The study was acquired using digital technology and interpreted from soft copy. Current study was also evaluated with ICAD version 7.2. CLINICAL: Routine screening. Patient has no complaints. No personal history of cancer. No family history of breast cancer. COMPARISONS: Comparison is made to exams dated: 09/22/2014, 09/06/2013, and 08/21/2012 [facility]. BREAST TISSUE: The tissue of both breasts is heterogeneously dense. This may lower the sensitivity of mammography. FINDINGS: There are stable benign well-circumscribed nodules in both breasts. There is a mole marker on the left breast. No significant masses, calcifications, or other findings are seen in either breast. IMPRESSION: BI-RAD 2 BENIGN There is no mammographic evidence of malignancy. A 1 year screening mammogram is recommended. The patient has been or will be contacted. The patient will be entered into a reminder system with a target due date of 1 year for her next screening exam. Electronically signed by: Kristine Watters M.D. pw/:01/14/2016 08:59:57 Log Sorter: Kendra CUNNINGHAM)(M), [facility] letter sent: Normal Exam Reading location: [facility] BI-RADS: 2 Benign Bc Berman MD IMG MAMMO ORDERABLES Final R esult from Last 3 Months or Most Recently Relevant to Health Maintenance Insurance [facility] C [facility] Care Teams Brass Burnisher Relationship Specialty Start Date End Date Sharonda Esqueda MD [facility] [place] [phone] PCP - General Internal Medicine 07/13/19
--- OUTSIDE RECORDS SUMMARY | 2024-12-02 08:51 | XMS_ITS ---
Author Organization [facility] Address [address] [facility] [address], [place] [address] Care Team Providers Care Head Paper Tester Name Role Phone Bassam Connors DPM Primary Care Provider [phone] Encounters Encounter Location Date Provider Diagnosis [facility] [address] [address], [place] [address] 05/10/2024 Bassam Connors DPM PLAN OF TREATMENT No Information
--- OUTSIDE RECORDS SUMMARY | 2024-12-02 08:51 | XMS_ITS | Encounter Summary ---
Author Organization [facility] [employer] [facility] Address [address] [place] [address] Care Team Providers Care Eyeglass Maker Name Role Phone Sharonda Esqueda MD Primary Care Provider [phone] Reason for Visit * Reason Comments Medication Refill Encounter Details Date Type Department Care Team ([facility] Contact Info) Description 10/09/2021 Refill [facility] Oncology and Hematology - [place] [address] [place] [address] [address] [place] [address] Dawson Jara MD [address] [facility] [facility] [address] [place] [address] Malignant neoplasm of upper-outer quadrant of left breast in female, estrogen receptor positive (CMS/HCC) Social History Tobacco Use Types Packs/Day Years Used Date Smoking Tobacco: Never Smokeless Tobacco: Never Alcohol Use Standard Drinks/Week Comments Never 0 (1 standard drink = 0.6 oz pur e alcohol) Comments No Sex and Gender Information Value Date Recorded Sex Assigned at Not on file Legal Sex Female 11:54 AM CDT Gender Identity Not on file Sexual Orientation Not on file COVID-19 Exposure Response Date Recorded In the last month, have you been in contact with someone who was confirmed or suspected to have Coronavirus / COVID-19? No / Unsure 10/07/2021 8:56 AM SENIOR ASSET MANAGER documented as of this encounter Plan of Treatment Upcoming Encounters Date Type Department Care Team (Late Contact Info) Description 12/16/2024 8:45 AM CDT Office Visit [facility] Oncology and Hematology [facility] [address] [facility] [address] [place] [address] Dawson Jara MD [address] [facility] [address] [place] [address] documented as of this encounter Visit Diagnoses Diagnosis Malignant neoplasm of upper-outer quadrant of left breast in female, estrogen receptor positive (CMS/HCC) documented in this encounter Care Teams Eyeglass Maker Relationship Specialty Start Date End Date Sharonda Esqueda MD PCP - General Internal Medicine 01/22/20 documented as of this encounter
--- OUTSIDE RECORDS SUMMARY | 2024-12-02 08:51 | XMS_ITS | Clinical Summary ---
Author Organization [facility] Address [address] [place] [address] Care Team Providers Care Hose Coupling Joiner Name Role Phone Sharonda Esqueda MD Primary Care Provider [phone] Allergies No known active allergies Medications lisinopriL (PRINIVIL) 10 mg tablet lisinopril 10 mg tablet 1 PO daily Active hydroCHLOROthi azide 25 mg tablet Take 25 mg by mouth daily. Active calcium carbonate/charmaine min D3 (CALCIUM 500 + D ORAL) Take by mouth. Activ e ergocalciferol (VITAMIN D2) 50,000 unit capsule Take 1 Capsule (50,000 Units) by mouth every 7 days. 12 Capsule 08/31/20 20 Active anastrozole (ARIMIDEX) 1 mg tabletIndicati ons:Malignant neoplasm of upper-outer quadrant of left breast in female, estrogen receptor positive (CMS/HCC) Take 1 tablet by mouth once daily 90 Tablet 11/20/19 25 Active anastrozole (ARIMIDEX) 1 mg tabletIndicati ons:Malignant neoplasm of upper-outer quadrant of left breast in female, estrogen receptor positive (CMS/HCC) Take 1 Tablet (1 mg) by mouth daily. 90 Tablet 2 02/13/20 24 025 Discontinued Active Problems Patient Care Coordination No te Formatting of this note migh t be different from the original. Primary Care: Sharonda Esqueda MD Referring Provider: Sharonda Esqueda MD [address] [place] [address] [place] [id number] Other: Dr. Patience Shearer MD Problem Noted Date Diagnosed Date History of left breast cancer 02/21/2023 Malignant neoplasm of upper- outer quadrant of left breast in female, estrogen receptor positive 01/30/2020 Encounters Date Type Department Care Team Description 11/19/2024 Refill [facility] [address] [place] [address] Dawson Jara MD Malignant neoplasm of upper-outer quadrant of left breast in female, estrogen receptor positive (CMS/HCC) 11/05/2024 External Device Data [facility] ABSTRACTION Provider, Abstract 10/09/2024 External Device Data [facility] AB[facility]CTION Provider, Abstract 10/08/2024 External Device Data [facility] ABSTRACTION Provider, Abstract 10/01/2024 External Device Data [facility]CTION Provider, Abstract from Last 3 Months Family History Medical History Relation Name Comments Breast Cancer Neg Hx Ovarian Cancer Neg Hx Relation Name Status Comments Brother 1 Alive Brother 2 Alive Brother 3 Brother 4 Daughter 1 Alive Daughter 2 Alive Father Mother Sister 1 Alive Sister 2 Alive Sister 3 Alive Sister 4 Son 1 Alive Son 2 Alive Son 3 Alive Son 4 Alive Son 5 Alive Social History Tobacco Use Types Packs/Day Years Used Date Smoking Tobacco: Never Smokeless Tobacco: Never Tobacco Cessation:Counseling Given: Not Answered Alcohol Use Standard Drinks/Week Comments Never 0 (1 standard drink = 0.6 oz pur e alcohol) Comments No Sex and Gender Information Value Date Recorded Sex Assigned at Not on file Legal Sex Female 11:54 AM CDT Gender Identity Not on file Sexual Orientation Not on file Last Filed Vital Signs Vital Sign Reading Time Taken Comments Blood Pressure 108/67 02/13/2024 8:27 AM CDT Pulse 57 02/13/2024 8:27 AM CDT Temperature 35.9 C (96.6 F) 02/13/2024 8:27 AM CDT Respiratory Rate 14 02/13/2024 8:27 AM CDT Oxygen Saturation 94% 02/13/2024 8:27 AM CDT Inhaled Oxygen Concentration - - Weight 83.9 kg (185 lb) 02/13/2024 8:27 AM CDT Height 160 cm (5' 3 ) 02/21/2023 9:56 AM CDT Body Mass Index 32.77 02/21/2023 9:56 AM CDT Plan of Treatment Upcoming Encounters Date Type Department Care Team (Late st Contact Info) Description 12/16/2024 8:45 AM CDT Office Visit [facility] - [place] [address] [facility] [address] [place] [address] Dawson Jara MD [address] [facility] [address] [place] [address] Health Maintenance Due Date Last Done Comments DTAP/TDAP/TD VACCINES (1 - Tdap) 1972 COLORECTAL SCREENING 1998 Colorectal Cancer Screening 1998 FIT-DNA Q 3 years 1998 FIT/FOBT Q 1 year 1998 Flex Sig/CT Colonography Q 5 years 1998 PNEUMOCOCCAL VACCINE 50+ YEA RS (1 of 1 - PCV) 2003 ZOSTER VACCINE (1 of 2) 2003 INFLUENZA VACCINE (#1) 2024 Medicare Ad[place]age ([place]) Preventative Visit/Annual Wellness Visit 09/18/2024 12/04/2018 BREAST CANCER SCREENING 05/02/2025 05/02/20 24, 02/21/2023, 02/16/2022, Additional history exists RSV VACCINE (60+ or ) (1 - 1-dose 75+ series) 2028 OSTEOPOROSIS SCREENING Completed , 07/13/2019, 01/06/2016 Medical Devices Implanted Type Area Roll Edge Machine Operator Device Identifier Shelf Expiration Date Model / Serial / Lot Joiner Helper Clip Surgiclip Ii Ricardo 9.75in [id number] - [id number] Implanted:Qty : 1 on 03/09/2020 by Patience Shearer MD at [facility] Clip Left: Breast [employer] - COVIDIEN [id number] 06/17/2024 [id number] / / [id number] Hemostatic Surgicel 2x14in 1950 - [id number] Implanted:Qty : 1 on 03/09/2020 by Patience Shearer MD at [facility] Hemostatic Left: Breast [facility] [id number] 05/18/20241 / / [id number] Procedures Procedure Name Priority Date/Time Associated Diagnosis Comments MAMMO 3D KD DIAGNOSTIC BILAT W OR WO CAD Routine 05/02/2024 7:52 AM CDT History of left breast cancer from Last 3 Months or Most Recently Relevant to Health Maintenance Results * MAMMO DIAG BILAT 3D KD W OR WO CAD (05/02/2024 7:52 AM CDT) Anatomical Region Laterality Modality Breast Bilateral Mammography 05/02/2024 7:52 AM CDT Impressions 05/02/2024 8:46 AM CDT IMPRESSION: No suspicious findings to suggest malignancy in either breast. Annual mammography is recommended. OVERALL FINAL ASSESSMENT: BI-RADS CATEGORY 2 - Benign findings. DICTATION LOCATION: [facility] 05/02/2024 8:46 AM CDT BILATERAL FULL-FIELD DIGITAL DIAGNOSTIC MAMMOGRAM WITH CAD WITH TOMOSYNTHESIS DATE: 05/02/2024 7:52 AM HISTORY: Personal history of left breast cancer treated with conservation therapy. TECHNIQUE: Full-field digital craniocaudal, mediolateral and mediolateral oblique projections of both breasts were obtained. Low-dose full-field digital breast tomosynthesis examination was performed with 2D and 3D acquisitions. Computer aided diagnosis was performed. COMPARISON: 2022 mammography and older BREAST COMPOSITION: There are scattered areas of fibroglandular density. FINDINGS: No suspicious mass, suspicious microcalcifications, or architectural distortion is identified in either breast. Left breast conservation therapy changes are redemonstrated. Computer aided detection was used in the interpretation of this examination. Procedure Note Joey Valladares MD - 05/02/2024 BILATERAL FULL-FIELD DIGITAL DIAGNOSTIC MAMMOGRAM WITH CAD WITH TOMOSYNTHESIS DATE: 05/02/2024 7:52 AM HISTORY: Personal history of left breast cancer treated with conservation therapy. TECHNIQUE: Full-field digital craniocaudal, mediolateral and mediolateral oblique projections of both breasts were obtained. Low-dose full-field digital breast tomosynthesis examination was performed with 2D and 3D acquisitions. Computer aided diagnosis was performed. COMPARISON: 2022 mammography and older BREAST COMPOSITION: There are scattered areas of fibroglandular density. FINDINGS: No suspicious mass, suspicious microcalcifications, or architectural distortion is identified in either breast. Left breast conservation therapy changes are redemonstrated. Computer aided detection was used in the interpretation of this examination. IMPRESSION: No suspicious findings to suggest malignancy in either breast. Annual mammography is recommended. OVERALL FINAL ASSESSMENT: BI-RADS CATEGORY 2 - Benign findings. DICTATION LOCATION: [facility] Patience Shearer MD MAMMO ORDERABLES Final R esult from Last 3 Months or Most Recently Relevant to Health Maintenance Insurance RX [employer] RX Member Subscriber Plan / Payer (Ef fective 2018-Present) Name:Alida Carlton Relation to Subscriber:Self Name:Alida Carlton Payer ID:Not on file Group ID:[id number] Type:RX Medicare Part D Address: [address] Care Teams Hose Coupling Joiner Relationship Specialty Start Date End Date Sharonda Esqueda MD PCP - General Internal Medicine 01/22/20
--- OUTSIDE RECORDS SUMMARY | 2024-12-02 08:51 | XMS_ITS | Data Portability ---
[facility] Organization [facility] Address [address] [place] [address] Assessment No assessment recorded. Plan of Treatment Reminders Order Date Submit Date Provider Last Modified By Organization Details Last Modified Time Details Appointments None recorded. Lab pap, IG + HPV, cervical 2018 019 ADIRONDACK [facility], [address], [place], [address], 9 14:12:00 urinalysi s, dipstick 2018 019 [facility] In-Office Order, Internal Use Only DO Not Attach Compendium DO Not Attach Compendium, Do Not Delete/merge, [id number] 9 14:37:46 fecal occult blood, stool 2018 019 ADIRONDACK In-Office Order, Internal Use Only DO Not Attach Compendium DO Not Attach Compendium, Do Not Delete/merge, [id number] 9 08:53:12 HIV 1+2 AB + HIV 1 p24 Ag, qualitati ve immunoass ay, serum 2018 019 KRISTY [facility], [address], [address], [place], [address], 9 06:17:30 hepatitis C Ab, signal-to -cutoff, serum or plasma 2018 019 KRISTY [facility], [address], [address], [place], [address], 9 06:17:30 HbA1c (hemoglob in A1c), blood 2018 019 KRISTY [facility], [address], [address], [place], [address], 9 06:17:29 TSH, ultra-sen sitive, serum 2018 019 KRISTY [facility], [address], [address], [place], [address], 9 06:17:29 CMP, serum or plasma 2018 019 KRISTY [facility], [address], [address], [place], [address], 9 06:17:28 lipid panel, serum 2018 019 KRISTYMICHAEL [facility], [address], [address], [place], [address], 9 06:17:28 CBC w/ auto diff 2018 019 KRISTY [facility], [address], [address], [place], [address], 9 06:17:27 HIV 1+2 AB + HIV 1 p24 Ag, qualitati ve immunoass ay, serum 2016 017 KRISTYMICHAEL [facility], [address], [address], [place], [address], 7 06:16:36 hepatitis C Ab, signal-to -cutoff, serum or plasma 2016 017 KRISTY [facility], [address], [address], [place], [address], 7 06:16:36 HbA1c (hemoglob in A1c), blood 2016 017 KRISTY Layne, [address], [address], [place], [address], 7 06:16:35 TSH, ultra-sen sitive, serum 2016 017 [facility], [address], [address], [place], [address], 7 06:16:37 hemoglobi n, qualitati ve, stool by immunolog ic method 2016 017 [facility], [address], [address], [place], [address], 8 19:08:15 CMP, serum or plasma 2016 017 [facility], [address], [address], [place], [address], 7 06:16:34 lipid panel, serum 2016 017 [facility], [address], [address], [place], [address], 7 06:16:35 test, urine 2015 016 [email or web address] In-Office Order, Internal Use Only DO Not Attach Compendium DO Not Attach Compendium, Do Not Delete/merge, [id number] 6 14:40:52 urinalysi s, dipstick 2015 016 [email or web address] In-Office Order, Internal Use Only DO Not Attach Compendium DO Not Attach Compendium, Do Not Delete/merge, [id number] 6 14:40:52 pap, IG + HPV, cervical 2015 016 [facility], [address], [address], [place], [address], 6 14:19:29 Referral colonosco py referral 2018 019 lois Rosario MD, [address], [place], [address], 9 12:55:21 gastroent erologist referral 2018 [facility]19 [facility] Not [facility] 9 10:57:10 Procedures None recorded. Surgeries None recorded. Imaging MAMMO, screening , bilateral 2018 019 [facility] ([facility]), [address] [place], [address], 9 10:57:10 MAMMO, screening , digital, bilateral 2018 019 [facility] ([facility]), [address] [place], [address], 9 14:34:19 MAMMO, screening , bilateral - [facility] 2016 017 [facility] ([facility]), [address] [place], [address], 7 13:14:11 Medication Orders amlodipin e 10 mg-atorva statin 20 mg tablet 2018 019 [facility], [address] [place] [address], [address], 9 17:01:57 glimepiri de 1 mg tablet 2018 019 [facility], [address] [place] [address], [address], 9 11:21:40 Patient TargetsNo targets recorded. Patient Instructions Encounter Date Encounter Id Patient Instructions Last Modified By Organization Details Last Modified Time 05/02/2016 [id number] Patient is a 60 y/o postmenopausal female who presents for repeat pap smear. Last pap was 12/08/15 with normal cytology and +HPV. Repeat pap was recommended at 6months. Pap obtained today. Patient reports no gynecologic complaints at this visit. [email or web address] Not available 05/02/2016 14:40:52 08/17/2017 [id number] mammogram: about this test edgar Not available 08/17/2017 11:59:52 learning about high blood pressure ese Not available 08/17/2017 12:29:00 09/06/2017 [id number] WIll determine f /u based on labs - advised to f/u when she has insurance next month and then I will refer her to GI for a colonoscopy. She is in the [facility]P program. Patient will follow up during month for complete yearly physical and health maintenance screening and updates. Patient advised to have dental maintenance q 6 months, eye exam yearly. Women to do BSE monthly, and have a yearly in office breast exam along with mammogram.Advised to eat plenty fiber and drink at least 64 oz fluid daily, most of which should be water. Remain physically active with regular aerobic and some weight resistance exercises. Colonoscopy every 7-10 years unless indicated otherwise and FOBT in between years. BDS after age 50. Shingles vaccine after age 55 or if indicated otherwise and yearly flu shots. Td q 10 years. [email or web address] Not available 09/06/2017 11:11:39 Reason for Referral Hop Separator Referral for Screening for malignant neoplasm of colon Referring Physician: Chery Templeton, Family Medicine, Encounter Date: 10/22/2018 Colonoscopy Referral for Scr eening for malignant neoplasm of colon Referring Physician: Viet Martino, [employer] INS[employer], Encounter Date: 12/04/2018 Results Created Date Observation Date Name Description Value Unit Range Abnormal Flag Note LastModifiedBy Organization Detail LastModifiedTime 12/05/1912/04/2018 urina lysis , dipst ick Leukocytes Negati ve Not Available In-Office Order Internal Use Only DO Not Attach Compendium DO Not Attach Compendium, Do Not Delete/merge, [id number] 12/04/2018 10:53:53 12/05/1912/04/2018 urina lysis , dipst ick Nitrite negati ve Not Available In-Office Order Internal Use Only DO Not Attach Compendium DO Not Attach Compendium, Do Not Delete/merge, [id number] 12/04/2018 10:53:53 12/05/1912/04/2018 urina lysis , dipst ick Urobilinogen .2 Not Available In-Of fice Order Internal Use Only DO Not Attach Compendium DO Not Attach Compendium, Do Not Delete/merge, 12/04/2018 10:53:53 12/05/1912/04/2018 urina lysis , dipst ick Protein Negati ve Not Available In-Office Order Internal Use Only DO Not Attach Compendium DO Not Attach Compendium, Do Not Delete/merge, 12/04/2018 10:53:53 12/05/1912/04/2018 urina lysis , dipst ick pH 6.0 Not Available In-Office Order Internal Use Only DO Not Attach Compendium DO Not Attach Compendium, Do Not Delete/merge, 12/04/2018 10:53:53 12/05/1912/04/2018 urina lysis , dipst ick Blood Hemoly zed: Trace Not Available In-Office Order Internal Use Only DO Not Attach Compendium DO Not Attach Compendium, Do Not Delete/merge, 12/04/2018 10:53:53 12/05/1912/04/2018 urina lysis , dipst ick Specific [place] 1.025 Not Available In-Off ice Order Internal Use Only DO Not Attach Compendium DO Not Attach Compendium, Do Not Delete/merge, 12/04/2018 10:53:53 12/05/1912/04/2018 urina lysis , dipst ick Ketone Negati ve Not Available In-Office Order Internal Use Only DO Not Attach Compendium DO Not Attach Compendium, Do Not Delete/merge, 12/04/2018 10:53:53 12/05/1912/04/2018 urina lysis , dipst ick Bilirubin Negati ve Not Available In-Office Order Internal Use Only DO Not Attach Compendium DO Not Attach Compendium, Do Not Delete/merge, 12/04/2018 10:53:53 12/05/1912/04/2018 urina lysis , dipst ick Glucose Negati ve Not Available In-Office Order Internal Use Only DO Not Attach Compendium DO Not Attach Compendium, Do Not Delete/merge, 12/04/2018 10:53:53 05/02/20 16 05/02/2016 urina lysis , dipst ick Leukocytes Negati ve Not Available In-Office Order Internal Use Only DO Not Attach Compendium DO Not Attach Compendium, Do Not Delete/merge, 05/02/2016 11:19:10 05/02/20 16 05/02/2016 urina lysis , dipst ick Nitrite negati ve Not Available In-Office Order Internal Use Only DO Not Attach Compendium DO Not Attach Compendium, Do Not Delete/merge, 05/02/2016 11:19:10 05/02/20 16 05/02/2016 urina lysis , dipst ick Urobilinogen .2 Not Available In-Of fice Order Internal Use Only DO Not Attach Compendium DO Not Attach Compendium, Do Not Delete/merge, 05/02/2016 11:19:10 05/02/20 16 05/02/2016 urina lysis , dipst ick Protein 30 Not Available In-Office Order Internal Use Only DO Not Attach Compendium DO Not Attach Compendium, Do Not Delete/merge, 05/02/2016 11:19:10 05/02/20 16 05/02/2016 urina lysis , dipst ick pH 5.0 Not Available In-Office Order Internal Use Only DO Not Attach Compendium DO Not Attach Compendium, Do Not Delete/merge, 05/02/2016 11:19:10 05/02/20 16 05/02/2016 urina lysis , dipst ick Blood Small Not Available In-Office Order Internal Use Only DO Not Attach Compendium DO Not Attach Compendium, Do Not Delete/merge, 05/02/2016 11:19:10 05/02/20 16 05/02/2016 urina lysis , dipst ick Specific [place] 1.030 Not Available In-Off ice Order Internal Use Only DO Not Attach Compendium DO Not Attach Compendium, Do Not Delete/merge, 05/02/2016 11:19:10 05/02/20 16 05/02/2016 urina lysis , dipst ick Ketone Negati ve Not Available In-Office Order Internal Use Only DO Not Attach Compendium DO Not Attach Compendium, Do Not Delete/merge, [id number] 05/02/2016 11:19:10 05/02/20 16 05/02/2016 urina lysis , dipst ick Bilirubin Small Not Available In-Offic e Order Internal Use Only DO Not Attach Compendium DO Not Attach Compendium, Do Not Delete/merge, [id number] 05/02/2016 11:19:10 05/02/20 16 05/02/2016 urina lysis , dipst ick Glucose Negati ve Not Available In-Office Order Internal Use Only DO Not Attach Compendium DO Not Attach Compendium, Do Not Delete/merge, [id number] 05/02/2016 11:19:10 05/02/20 16 05/02/2016 pregn sebastián test, urine HCG negati ve Not Available In-Office Order Internal Use Only DO Not Attach Compendium DO Not Attach Compendium, Do Not Delete/merge, [id number] 05/02/2016 11:19:09 05/02/20 16 05/04/2016 pap, IG + HPV, cervi robbie HPV aptima POSITI VE negati ve abnormal THIS TEST DETEC TS FOURT EEN HIGH- RISK HPV TYPES (16/1 8/31/ 33/35 /39/4 5/ 51/52 /56/5 8/59/ 66/68 ) WITHO UT DIFFE RENTI ATION . Not Available [facility] ([facility]) [address] [facility], [place], [address], 05/05/2016 14:19:29 05/02/20 16 05/05/2016 pap, IG + HPV, cervi robbie diagnosis: COMMEN T NEGAT LISA FOR INTRA EPITH ELIAL LESIO N AND RUBI BOCANEGRA . PREDO MINAN CE OF COCCO BACIL LI CONSI STENT WITH SHIFT IN VAGIN AL KOLTON IS PRESE NT. CELLU LAR CRUZ ES ASSOC IATED WITH INFLA MMATI ON ARE PRESE NT. SPECI MEN REPRO CESSE D FOR INTER PRETA TION USING GLACI AL ACETI C ACID (GAA) . Not Available [facility] ([facility]) [address] [facility], [place], [address], 05/05/2016 14:19:29 05/02/20 16 05/05/2016 pap, IG + HPV, cervi robbie specimen adequacy: LINN Rodríguez SATIS FACTO RY FOR EVALU ATION . PARTI ALLY OBSCU RING THICK AREAS ARE PRESE NT. Not Available [facility] ([facility]) [address] [place], [address], 05/05/2016 14:19:29 05/02/20 16 05/05/2016 pap, IG + HPV, cervi robbie clinician provided ICD10: LINN Rodríguez Z01.4 19 Not Available [facility] ([facility]) [address] [place], [address], 05/05/2016 14:19:29 05/02/20 16 05/05/2016 pap, IG + HPV, cervi robbie performed by: REKHA VITAL ([facility] ) Not Available [facility] ([facility]) [address] [place], [address], 05/05/2016 14:19:29 05/02/20 16 05/05/2016 pap, IG + HPV, cervi robbie . . Not Available [facility] ([facility]) [address] [place], [address], 05/05/2016 14:19:29 05/02/20 16 05/05/2016 pap, IG + HPV, cervi robbie pathologist provided ICD10: LINN Rodríguez R87.5 Not Available [facility] ([facility]) [address] [place], [address], 05/05/2016 14:19:29 05/02/20 16 05/05/2016 pap, IG + HPV, cervi robbie note: LINN Rodríguez THE PAP SMEAR IS A SCREE BERNARDO TEST DESIG EDIE TO AID IN THE DETEC TION OF ARTHUR LIGNA NT AND MALIG NANT CONDI TIONS OF THE UTERI NE CERVI X. IT IS NOT A DIAGN OSTIC PROCE DURE AND SHOUL D NOT BE USED THE SOLE MEANS OF DETEC TING CERVI ROBBIE CANCE R. BOTH FALSE -POSI TIVE AND FALSE -NEGA TIVE REPOR TS DO OCCUR . Not Available [facility] ([facility]) [address] [facility] [place], [address], 05/05/2016 14:19:29 05/02/20 16 05/05/2016 pap, IG + HPV, cervi robbie test methodology: TNP THE THIN PREP( R) IMAGE R WAS UNABL E TO READ THIS SPECI MEN. THERE FORE A MANUA L REVIE W WAS PERFO RMED. Not Available [facility] ([facility]) [address] [facility], [place], [address], 05/05/2016 14:19:29 09/07/20 17 09/08/2017 CMP, serum or plasm a glucose, serum 91 mg/dL 65-99 Not Available [facility] ([facility]) [address] [place], [address], 09/08/2017 06:16:34 09/07/20 17 09/08/2017 CMP, serum or plasm a BUN 13 mg/dL 8-27 Not Available [facility] ([facility]) [address] [place], [address], 09/08/2017 06:16:34 09/07/20 17 09/08/2017 CMP, serum or plasm a creatinine, serum 0.72 mg/dL 0.57-1 .00 Not Available [facility] ([facility]) [address] [place], [address], 09/08/2017 06:16:34 09/07/20 17 09/08/2017 CMP, serum or plasm a eGFR if nonafricn AM 89 mL/mi n/1.7 3 >59 Not Available [facility] ([facility]) [address] [place], [address], 09/08/2017 06:16:34 09/07/20 17 09/08/2017 CMP, serum or plasm a eGFR if africn AM 102 mL/mi n/1.7 3 >59 Not Available [facility] ([facility]) [address] [facility] [place], [address], 09/08/2017 06:16:34 09/07/20 17 09/08/2017 CMP, serum or plasm a BUN/creatini ne ratio 18 12-28 Not Available [facility] ([facility]) [address] [facility] [place], [address], 09/08/2017 06:16:34 09/07/20 17 09/08/2017 CMP, serum or plasm a sodium, serum 146 mmol/ L 134-14 4 above high normal Not Available [facility] ([facility]) [address] [facility] [place], [address], 09/08/2017 06:16:34 09/07/20 17 09/08/2017 CMP, serum or plasm a potassium, serum 4.2 mmol/ L 3.5-5. 2 Not Available [facility] ([facility]) [address] [facility] [place], [address], 09/08/2017 06:16:34 09/07/20 17 09/08/2017 CMP, serum or plasm a chloride, serum 105 mmol/ L 96-106 Not Available [facility] ([facility]) [address] [facility] [place], [address], 09/08/2017 06:16:34 09/07/20 17 09/08/2017 CMP, serum or plasm a carbon dioxide, total 29 mmol/ L 18-29 Not Available [facility] ([facility]) [address] [facility] [place], [address], 09/08/2017 06:16:34 09/07/20 17 09/08/2017 CMP, serum or plasm a calcium, serum 8.4 mg/dL 8.7-10 .3 below low normal Not Available [facility] ([facility]) [address] [facility] [place], [address], 09/08/2017 06:16:34 09/07/20 17 09/08/2017 CMP, serum or plasm a protein, total, serum 6.3 g/dL 6.0-8. 5 Not Available [facility] ([facility]) [address] [facility] [place], [address], 09/08/2017 06:16:34 09/07/20 17 09/08/2017 CMP, serum or plasm a albumin, serum 3.7 g/dL 3.6-4. 8 Not Available [facility] ([facility]) [address] [facility] [place], [address], 09/08/2017 06:16:34 09/07/20 17 09/08/2017 CMP, serum or plasm a globulin, total 2.6 g/dL 1.5-4. 5 Not Available [facility] ([facility]) [address] [place], [address], 09/08/2017 06:16:34 09/07/20 17 09/08/2017 CMP, serum or plasm a A/G ratio 1.4 1.2-2. 2 Not Available [facility] ([facility]) [address] [facility] [place], [address], 09/08/2017 06:16:34 09/07/20 17 09/08/2017 CMP, serum or plasm a bilirubin, total 0.2 mg/dL 0.0-1. 2 Not Available [facility] ([facility]) [address] [place], [address], 09/08/2017 06:16:34 09/07/20 17 09/08/2017 CMP, serum or plasm a alkaline phosphatase, S 53 IU/L 39-117 Not Available [facility] ([facility]) [address] [place], [address], 09/08/2017 06:16:34 09/07/20 17 09/08/2017 CMP, serum or plasm a AST (SGOT) 12 IU/L 0-40 Not Available [facility] ([facility]) [address], [place], [address], 09/08/2017 06:16:34 09/07/20 17 09/08/2017 CMP, serum or plasm a ALT (SGPT) 7 IU/L 0-32 Not Available [facility] ([facility]) [address] [facility] [place], [address], 09/08/2017 06:16:34 09/07/20 17 09/08/2017 lipid panel , serum cholesterol, total 173 mg/dL 100-19 9 Not Available [facility] ([facility]) [address] [facility] [place], [address], 09/08/2017 06:16:35 09/07/20 17 09/08/2017 lipid panel , serum triglyceride s 57 mg/dL 0-149 Not Available [facility] ([facility]) [address] [facility], [place], [address], 09/08/2017 06:16:35 09/07/20 17 09/08/2017 lipid panel , serum HDL cholesterol 55 mg/dL >39 Not Available [facility] [address] [facility] [place], [address], 09/08/2017 06:16:35 09/07/20 17 09/08/2017 lipid panel , serum VLDL cholesterol robbie 11 mg/dL 5-40 Not Available [facility] ([facility]) [address] [facility] [place], [address], 09/08/2017 06:16:35 09/07/20 17 09/08/2017 lipid panel , serum LDL cholesterol calc 107 mg/dL 0-99 above high normal Not Available [facility] ([facility]) [address] [facility] [place], [address], 09/08/2017 06:16:35 09/07/20 17 09/08/2017 lipid panel , serum comment: BURLAP WORKER Not Available [facility] ([facility]) [address] [facility], [place], [address], 09/08/2017 06:16:35 09/07/20 17 09/08/2017 lipid panel , serum T. chol/HDL ratio 3.1 ratio _unit s 0.0-4. 4 T. Chol/ HDL Ratio Men Women 1/2 Avg.R isk 3.4 3.3 Avg.R isk 5.0 4.4 2X Avg.R isk 9.6 7.1 3X Avg.R isk 23.4 11.0 Not Available [facility] ([facility]) [address] [facility], [place], [address], 09/08/2017 06:16:35 09/07/20 17 09/08/2017 HbA1c (hemo globi n A1c), blood hemoglobin A1C 5.9 % 4.8-5. 6 above high normal Pre-d iabet es: 5.7 - 6.4 Diabe marie: >6.4 Glyce arielle contr ol for adult s with diabe marie: <7.0 Not Available [facility] ([facility]) [address] [facility], [place], [address], 09/08/2017 06:16:35 09/07/20 17 09/08/2017 HIV 1+2 AB + HIV 1 p24 Ag, quali tativ e immun oassa y, serum HIV screen 4TH generation wrfx NON REACTI VE non reacti ve Not Available [facility] ([facility]) [address] [facility], [place], [address], 09/08/2017 06:16:36 09/07/20 17 09/07/2017 hepat itis C Ab, signa l-to- cutof f, serum or plasm a comment: COMMEN T Non react lisa HCV antib liat scree n is consi stent with no HCV infec tion, unles s recen t infec tion is suspe cted or other evide nce exist s to indic ate HCV infec tion. Not Available [facility] ([facility]) [address] [facility], [place], [address], 09/08/2017 06:16:36 09/07/20 17 09/08/2017 hepat itis C Ab, signa l-to- cutof f, serum or plasm a HCV Ab <0.1 s/co_ ratio 0.0-0. 9 Not Available [facility] ([facility]) [address] [place], [address], 09/08/2017 06:16:36 09/07/20 17 09/08/2017 TSH, ultra -sens itive , serum TSH 2.350 uIU/m L 0.450- 4.500 Not Available [facility] ([facility]) [address] [facility], [address], 09/08/2017 06:16:37 10/05/19 18 10/06/2017 hemog lobin , quali tativ e, stool by immun ologi c metho d occult blood, fecal, ia NEGATI VE negati ve Not Available [facility] ([facility]) [address] [facility], [place], [address], 10/06/2017 19:08:14 10/05/19 18 10/05/2017 pleas e note please note COMMEN T The date and/o r time of colle ction was not indic ated on the requi sitio n as requi red by state and [place]elyn al law. The date of recei pt of the speci men was used as the colle ction date if not suppl ied. Not Available [facility] ([facility]) [address] [facility], [place], [address], 10/06/2017 19:08:17 10/22/1910/22/2018 CBC w/ auto diff WBC 5.7 x10e3 /uL 3.4-10 .8 Not Available [facility] ([facility]) [address] [facility], [address], 10/23/2018 06:17:27 10/22/1910/22/2018 CBC w/ auto diff RBC 4.28 x10e6 /uL 3.77-5 .28 Not Available [facility] ([facility]) [address] [place], [address], 10/23/2018 06:17:27 10/22/19 19 10/22/2018 CBC w/ auto diff hemoglobin 11.9 g/dL 11.1-1 5.9 Not Available [facility] ([facility]) [address] [place], [address], 10/23/2018 06:17:27 10/22/19 19 10/22/2018 CBC w/ auto diff hematocrit 36.4 % 34.0-4 6.6 Not Available [facility] ([facility]) [address] [place], [address], 10/23/2018 06:17:27 10/22/1910/22/2018 CBC w/ auto diff MCV 85 fL 79-97 Not Available [facility] ([facility]) [address] [place], [address], 10/23/2018 06:17:27 10/22/1910/22/2018 CBC w/ auto diff MCH 27.8 pg 26.6-3 3.0 Not Available [facility] ([facility]) [address] [place], [address], 10/23/2018 06:17:27 10/22/1910/22/2018 CBC w/ auto diff MCHC 32.7 g/dL 31.5-3 5.7 Not Available [facility] ([facility]) [address] [place], [address], 10/23/2018 06:17:27 10/22/1910/22/2018 CBC w/ auto diff RDW 14.7 % 12.3-1 5.4 Not Available [facility] ([facility]) [address] [place], [address], 10/23/2018 06:17:27 10/22/19 19 10/22/2018 CBC w/ auto diff platelets 264 x10e3 /uL 150-37 9 Not Available [facility] ([facility]) [address] [place], [address], 10/23/2018 06:17:27 10/22/19 19 10/22/2018 CBC w/ auto diff neutrophils 43 % not estab. Not Available [facility] ([facility]) [address] [facility], [place], [address], 10/23/2018 06:17:27 10/22/1910/22/2018 CBC w/ auto diff lymphs 47 % not estab. Not Available [facility] ([facility]) [address] [place], [address], 10/23/2018 06:17:27 10/22/1910/22/2018 CBC w/ auto diff monocytes 7 % not estab. Not Available [facility] ([facility]) [address] [place], [address], 10/23/2018 06:17:27 10/22/1910/22/2018 CBC w/ auto diff eos 2 % not estab. Not Available [facility] ([facility]) [address] [facility], [place], [address], 10/23/2018 06:17:27 10/22/1910/22/2018 CBC w/ auto diff basos 1 % not estab. Not Available [facility] ([facility]) [address] [facility], [place], [address], 10/23/2018 06:17:27 10/22/1910/22/2018 CBC w/ auto diff immature cells BURLAP WORKER Not Available [facility] ([facility]) [address] [place], [address], 10/23/2018 06:17:27 10/22/1910/22/2018 CBC w/ auto diff neutrophils (absolute) 2.5 x10e3 /uL 1.4-7. 0 Not Available [facility] ([facility]) [address] [place], [address], 10/23/2018 06:17:27 10/22/19 19 10/22/2018 CBC w/ auto diff lymphs (absolute) 2.7 x10e3 /uL 0.7-3. 1 Not Available [facility] ([facility]) [address] [place], [address], 10/23/2018 06:17:27 10/22/1910/22/2018 CBC w/ auto diff monocytes(ab solute) 0.4 x10e3 /uL 0.1-0. 9 Not Available [facility] ([facility]) [address] [place], [address], 10/23/2018 06:17:27 10/22/1910/22/2018 CBC w/ auto diff eos (absolute) 0.1 x10e3 /uL 0.0-0. 4 Not Available [facility] ([facility]) [address] [place], [address], 10/23/2018 06:17:27 10/22/1910/22/2018 CBC w/ auto diff baso (absolute) 0.0 x10e3 /uL 0.0-0. 2 Not Available [facility] ([facility]) [address] [place], [address], 10/23/2018 06:17:27 10/22/1910/22/2018 CBC w/ auto diff immature granulocytes 0 % not estab. Not Available [facility] ([facility]) [address] [place], [address], 10/23/2018 06:17:27 10/22/1910/22/2018 CBC w/ auto diff immature grans (abs) 0.0 x10e3 /uL 0.0-0. 1 Not Available [facility] ([facility]) [address] [place], [address], 10/23/2018 06:17:27 10/22/1910/22/2018 CBC w/ auto diff NRBC BURLAP WORKER Not Available [facility] ([facility]) [address] [place], [address], 10/23/2018 06:17:27 10/22/1910/22/2018 CBC w/ auto diff hematology comments: BURLAP WORKER Not Available [facility] ([facility]) [address] [place], [address], 10/23/2018 06:17:27 10/22/1910/23/2018 CMP, serum or plasm a glucose 98 mg/dL 65-99 Not Available [facility] ([facility]) [address] [place], [address], 10/23/2018 06:17:28 10/22/1910/23/2018 CMP, serum or plasm a BUN 17 mg/dL 8-27 Not Available [facility] ([facility]) [address] [place], [address], 10/23/2018 06:17:28 10/22/1910/23/2018 CMP, serum or plasm a creatinine 0.75 mg/dL 0.57-1 .00 Not Available [facility] ([facility]) [address] [place], [address], 10/23/2018 06:17:28 10/22/1910/23/2018 CMP, serum or plasm a eGFR if nonafricn AM 84 mL/mi n/1.7 3 >59 Not Available [facility] ([facility]) [address] [place], [address], 10/23/2018 06:17:28 10/22/19 19 10/23/2018 CMP, serum or plasm a eGFR if africn AM 97 mL/mi n/1.7 3 >59 Not Available [facility] ([facility]) [address] [facility] [place], [address], 10/23/2018 06:17:28 10/22/1910/23/2018 CMP, serum or plasm a BUN/creatini ne ratio 23 12-28 Not Available [facility] ([facility]) [address] [facility] [place], [address], 10/23/2018 06:17:28 10/22/1910/23/2018 CMP, serum or plasm a sodium 145 mmol/ L 134-14 4 above high normal Not Available [facility] ([facility]) [address] [facility] [place], [address], 10/23/2018 06:17:28 10/22/1910/23/2018 CMP, serum or plasm a potassium 4.1 mmol/ L 3.5-5. 2 Not Available [facility] ([facility]) [address] [place], [address], 10/23/2018 06:17:28 10/22/1910/23/2018 CMP, serum or plasm a chloride 106 mmol/ L 96-106 Not Available [facility] ([facility]) [address] [place], [address], 10/23/2018 06:17:28 10/22/1910/23/2018 CMP, serum or plasm a carbon dioxide, total 24 mmol/ L 20-29 Not Available [facility] ([facility]) [address] [place], [address], 10/23/2018 06:17:28 10/22/1910/23/2018 CMP, serum or plasm a calcium 9.0 mg/dL 8.7-10 .3 Not Available [facility] ([facility]) [address] [place], [address], 10/23/2018 06:17:28 10/22/1910/23/2018 CMP, serum or plasm a protein, total 6.5 g/dL 6.0-8. 5 Not Available [facility] ([facility]) [address] [place], [address], 10/23/2018 06:17:28 10/22/1910/23/2018 CMP, serum or plasm a albumin 4.1 g/dL 3.6-4. 8 Not Available [facility] ([facility]) [address] [place], [address], 10/23/2018 06:17:28 10/22/1910/23/2018 CMP, serum or plasm a globulin, total 2.4 g/dL 1.5-4. 5 Not Available [facility] ([facility]) [address] [place], [address], 10/23/2018 06:17:28 10/22/1910/23/2018 CMP, serum or plasm a A/G ratio 1.7 1.2-2. 2 Not Available [facility] ([facility]) [address] [place], [address], 10/23/2018 06:17:28 10/22/1910/23/2018 CMP, serum or plasm a bilirubin, total 0.2 mg/dL 0.0-1. 2 Not Available [facility] ([facility]) [address] [place], [address], 10/23/2018 06:17:28 10/22/1910/23/2018 CMP, serum or plasm a alkaline phosphatase 66 IU/L 39-117 Not Available [facility] ([facility]) [address] [place], [address], 10/23/2018 06:17:28 10/22/1910/23/2018 CMP, serum or plasm a AST (SGOT) 16 IU/L 0-40 Not Available [facility] ([facility]) [address] [place], [address], 10/23/2018 06:17:28 10/22/1910/23/2018 CMP, serum or plasm a ALT (SGPT) 8 IU/L 0-32 Not Available [facility] ([facility]) [address] [place], [address], 10/23/2018 06:17:28 10/22/1910/23/2018 lipid panel , serum cholesterol, total 187 mg/dL 100-19 9 Not Available [facility] ([facility]) [address] [place], [address], 10/23/2018 06:17:28 10/22/1910/23/2018 lipid panel , serum triglyceride s 54 mg/dL 0-149 Not Available [facility] ([facility]) [address] [facility], [address], 10/23/2018 06:17:28 10/22/1910/23/2018 lipid panel , serum HDL cholesterol 69 mg/dL >39 Not Available [facility] ([facility]) [address] [place], [address], 10/23/2018 06:17:28 10/22/1910/23/2018 lipid panel , serum VLDL cholesterol robbie 11 mg/dL 5-40 Not Available [facility] ([facility]) [address] [facility] [place], [address], 10/23/2018 06:17:28 10/22/1910/23/2018 lipid panel , serum LDL cholesterol calc 107 mg/dL 0-99 above high normal Not Available [facility] ([facility]) [address] [place], [address], 10/23/2018 06:17:28 10/22/1910/23/2018 lipid panel , serum 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 6 above high normal Predi abete s: 5.7 - 6.4 Diabe marie: >6.4 Glyce arielle contr ol for adult s with diabe marie: <7.0 Not Available [facility] ([facility]) [address] [facility], [place], [address], 10/23/2018 06:17:29 10/22/1910/23/2018 TSH, ultra -sens itive , serum TSH 2.490 uIU/m L 0.450- 4.500 Not Available [facility] ([facility]) [address] [facility], [place], [address], 10/23/2018 06:17:29 10/22/1910/23/2018 HIV 1+2 AB + HIV 1 p24 Ag, quali tativ e immun oassa y, serum HIV screen 4TH generation wrfx NON REACTI VE non reacti ve Not Available [facility] ([facility]) [address] [facility], [place], [address], 10/23/2018 06:17:30 10/22/1910/22/2018 hepat itis C Ab, signa l-to- cutof f, serum or plasm a comment: COMMEN T Non react lisa HCV antib liat scree n is consi stent with no HCV infec tion, unles s recen t infec tion is suspe cted or other evide nce exist s to indic ate HCV infec tion. Not Available [facility] ([facility]) [address] [facility], [place], [address], 10/23/2018 06:17:30 10/22/1910/23/2018 hepat itis C Ab, signa l-to- cutof f, serum or plasm a HCV Ab <0.1 s/co_ ratio 0.0-0. 9 Not Available [facility] ([facility]) [address] [facility], [place], [address], 10/23/2018 06:17:30 12/05/1912/06/2018 pap, IG + HPV, cervi robbie diagnosis: Linn GONZALEZ FOR INTRA EPITH ELIAL LESIO N OR RUBI BOCANEGRA . THIS SPECI MEN WAS RESCR EENED PART OF OUR QUALI TY CONTR OL PROGR AM. Not Available [facility] ([facility]) [address] [facility], [place], [address], 12/06/2018 14:12:00 12/05/1912/06/2018 pap, IG + HPV, cervi robbie specimen adequacy: Linn rodríguez Satis facto ry for evalu ation . No endoc ervic al compo nent is ident ified . Parti ally obscu ring thick areas are prese nt. Not Available [facility] ([facility]) [address] [facility], [place], [address], 12/06/2018 14:12:00 12/05/1912/06/2018 pap, IG + HPV, cervi robbie clinician provided ICD10: Linn rodríguez Z01.4 19 Not Available [facility] ([facility]) [address] [facility], [place], [address], 12/06/2018 14:12:00 12/05/19 19 12/06/2018 pap, IG + HPV, cervi robbie performed by: Linn Charles, Cytot echno logis t (ASCP ) Not Available [facility] ([facility]) [address] [place], [address], 12/06/2018 14:12:00 12/05/1912/06/2018 pap, IG + HPV, cervi robbie QC reviewed by: Linn conde, Super visor y Cytot echno logis t (ASCP ) Not Available [facility] ([facility]) [address] [place], [address], 12/06/2018 14:12:00 12/05/19 19 12/06/2018 pap, IG + HPV, cervi robbie . . Not Available [facility] ([facility]) [address] [place], [address], 12/06/2018 14:12:00 12/05/19 19 12/06/2018 pap, IG + HPV, cervi robbie note: Commen t The Pap smear is a scree bernardo test desig edie to aid in the detec tion of arthur ligna nt and malig nant condi tions of the uteri ne cervi x. It is not a diagn ostic proce dure and shoul d not be used as the sole means of detec ting cervi robbie cance r. Both false -posi tive and false -nega tive repor ts do occur . Not Available [facility] ([facility]) [address] [place], [address], 12/06/2018 14:12:00 12/05/19 19 12/06/2018 pap, IG + HPV, cervi robbie test methodology: Commen t This liqui d based ThinP rep(R ) pap test was scree edie with the use of an image guide oanh meléndez. Not Available [facility] ([facility]) [address] [place], [address], 12/06/2018 14:12:00 12/05/19 19 12/06/2018 pap, IG + HPV, cervi robbie HPV aptima Negati ve negati ve This test detec ts fourt een high- risk HPV types (16/1 8/31/ 33/35 /39/4 5/ 51/52 /56/5 8/59/ 66/68 ) witho ut diffe renti ation . Not Available [facility] ([facility]) [address] [place], [address], 12/06/2018 14:12:00 12/15/19 19 12/14/2018 fecal occul t blood , stool Occult Blood negati ve Not Available In-Office Order Internal Use Only DO Not Attach Compendium DO Not Attach Compendium, Do Not Delete/merge, [id number] 12/04/2018 11:01:50 09/04/20 17 09/04/2017 MAMMO , scree bernardo, bilat eral No observ ation record ed. [facility] (Imaging) [address] [place], [address], 12/04/2018 10:57:09 09/04/20 17 09/04/2017 MAMMO , scree bernardo, bilat eral No observ ation record ed. [facility] (Imaging) [address] [place], [address], 12/04/2018 10:57:09 11/12/19 19 11/12/2018 MAMMO , scree bernardo, digit al, bilat eral No observ ation record ed. [facility] [address] [place], [address], 12/04/2018 10:57:09 Result Notes None recorded. Problems Name Problem SNOMED Code Status Onset Date Resolution Date Notes Provider Name and Address Organization Details Recorded Time Blood glucose outside reference range 997173542 Completed 201612/04/2018 5.9 7 Viet huerta [place] - [facility] 9 11:17:02 Hyperlipid emia 07039270 Active 2016 Racquel Kahn PA-C Attn: Accounting ,[address] [place], [address] , [place] - [facility] 7 09:24:01 Hypertensi ve disorder 51600555 Active 2018 Viet huerta [place] - [facility] 9 11:16:46 Prediabete s 887199719 Active 2018 A1c 5.9 Viet huerta [place] - [facility] 9 11:17:22 Bacterial vaginosis 132603473 Active Bc huerta, [place] - [facility] 6 14:28:08 Problem Notes None recorded. Procedures Surgical History Date Name Laterality Status Provider Name and Address Organization Details Recorded Time 9 Date of Last Pap Smear completed Donna Queen MA [facility] 12/04/2018 10:42:05 9 Most Recent Mammogram completed Donna Queen MA [facility] 12/04/2018 10:46:03 Imaging Results Imaging Date Name Status LastModified by Organiz ation Details LastModified Time 09/04/2017 MAMMO, screening, bilateral completed [facility] (Imaging) [address] [place], [address], 12/04/2018 10:57:09 09/04/2017 MAMMO, screening, bilateral completed [facility] ([facility]) [address] [place], [address], 12/04/2018 10:57:09 11/12/2018 MAMMO, screening, digital, bilateral completed [facility] [address] [place], [address], 12/04/2018 10:57:09 Procedure Notes None recorded. Medical Equipment None Reported. Allergies No known drug allergies Medications Name Sig Start Date Stop Date Status Note LastModified by Organization Details LastModified Time metronidazole 500 mg tablet Take 1 tablet every 12 hours by oral route for 5 days. 2015 active Not Available Not Available Not Avai lable glimepiride 1 mg tablet Take 1 tablet every day by oral route. 2018 active Not Available Not Available Not Avai lable lisinopril 10 mg tablet 1 PO daily 2018 active Not Available Not Available Not Avai lable lovastatin 20 mg tablet Take 1 tablet every day by oral route. 2018 active Not Available Not Available Not Avai lable amlodipine 10 mg-atorvastatin 20 mg tablet Take 1 tablet every day by oral route. 2018 active Not Available Not Available Not Avai lable Vitals Date Recorded Body weight Body mass index (BMI) Body height Systolic blood pressure Diastolic blood pressure Provider Name and Address Organization Details Last Updated DateTime 08/17/2017 21383.92 g 34.4 kg/m2 160.02 cm 180 mm[Hg] 110 mm[Hg] Donna Queen MA [facility] 7 10:24:36 Date Recorded Body height Body mass index (BMI) Body weight Oxygen saturation Oxygen saturation in Arterial blood by Pulse oximetry Heart rate Body temperature Systolic blood pressure Diastolic blood pressure Provider Name and Address Organization Details Last Updated DateTime 7 160.02 cm 33.9 kg/m2 71067.5 4 g 96 % 96 % 82 /min 98.3 [degF] 132 mm[Hg] 84 mm[Hg] Richa Tucker [facility] 7 10:36:23 Date Recorded Body height Body mass index (BMI) Body weight Oxygen saturation Oxygen saturation in Arterial blood by Pulse oximetry Heart rate Body temperature Systolic blood pressure Diastolic blood pressure Provider Name and Address Organization Details Last Updated DateTime 9 160.02 cm 34.3 kg/m2 47700.1 3 g 95 % 95 % 80 /min 98.4 [degF] 152 mm[Hg] 100 mm[Hg] Nina Vegas MA [facility] 9 10:31:28 Date Recorded Body height Body mass index (BMI) Body weight Systolic blood pressure Diastolic blood pressure Provider Name and Address Organization Details Last Updated DateTime 12/04/2018 160.02 cm 34.4 kg/m2 87795.92 g 142 mm[Hg] 104 mm[Hg] Donna Queen MA [facility] 9 10:48:03 Date Recorded Body height Body weight Body mass index (BMI) Systolic blood pressure Diastolic blood pressure Provider Name and Address Organization Details Last Updated DateTime 05/02/2016 160.02 cm 50397.95 793 g 33.5 kg/m2 132 mm[Hg] 90 mm[Hg] Andreina Rey MA [facility] 6 11:15:48 Social History Question Answer Notes LastModified by Organizat ion Details LastModified Time Tobacco Smoking Status Never Smoker Gage Acosta RN null, [facility] 09/12/2014 11:31:21 Do You Have An Advance Directive? Yes Information not available 09/12/2014 What Is Your Level Of Alcohol Consumption? None Information not available 09/12/2014 Is Blood Transfusion Acceptable In An Emergency? Yes [email or web address] Information not available 09/12/2014 What Is Your Level Of Caffeine Consumption? Occasional [email or web address] Information not available 09/12/2014 How Much Tobacco Do You Chew? None [email or web address] Information not available 09/12/2014 Are You Currently Employed? Yes [email or web address] Information not available 09/12/2014 What Type Of Diet Are You Following? REGULAR [email or web address] Information not available 09/12/2014 Which Illicit Or Recreational Drugs Have You Used? 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 Alone [email or web address] Information not available 09/12/2014 What Was The Date Of Your Most Recent Tobacco Screening? 12/04/2018 Information not available 04/11/2019 How Many Children Do You Have? 7 Information not available 09/12/2014 Performs Monthly Self-breast Exam? Yes [email or web address] Information no t available 09/12/2014 Do You Use Protection During Sex? No Information not available 09/12/2014 What Is Your Relationship Status? Single [email or web address] Information not available 09/12/2014 Seat Belts Used Routinely Yes [email or web address] Information not available 09/12/2014 Are You Sexually Active? No Information not available 09/12/2014 How Much Tobacco Do You Smoke? No [email or web address] Information not available 09/12/2014 General Stress Level Low [email or web address] Information not available 09/12/2014 Do You Use Sunscreen Routinely? No [email or web address] Information not available 09/12/2014 Sex: Unknown Functional Status Question Answer Note LastModified by Organizat ion Details LastModified Time What is your exercise level? Occasional [email or web address] Information not available 09/12/2014 Mental Status None recorded. Family History Nothing Reported. Medical History Condition Response Heart Problems N Other N High Blood Pressure N Breast Cancer N Thyroid Problems N Kidney or Bladder Problems N GI Problems N Lung Disease N Depression N Blood Clots N Acne N Breast Problem N Eating Disorder N Anemia N Anesthesia Complications N Headaches/Migraines N Anxiety Disorder N Diabetes N Ovarian Cancer N Muscle, Joint, or Bone Problems N Blood Transfusions N Arthritis N Seizures/Epilepsy N Polyps N Infertility N Acid Reflux (GERD) N Cancer N Stroke N Abuse/Domestic Violence N Asthma N Endometriosis N High Cholesterol N Hepatitis N Liver Disease N Heart Disease N Pre-Eclampsia N Hypertension Y Osteoporosis N Kidney Disease N Gynecological History Statement/Question Response Abnormal Pap N On BCP's at Conception? N STIs/STDs Y HPV Vaccine N Duration of Flow (days) Most Recent Mammogram 11/12/2018 Age at Menarche 10 Current Control Method Menopause Age at First Child 14 Sexually Active? N Menses Monthly N Date of Last Pap Smear 12/04/2018 Sexual Problems? N LMP Unknown Obstetrics History GPAL:G 7 P 6 1 0 7 Type Value Multiple Births 0 Full Term 6 Induced 0 Spontaneous 0 Premature 1 Living 7 Ectopics 0 Total 7 Past Encounters Encounter ID Performer Location Encounter Start Date Encounter Closed Date Diagnosis/Indication Diagnosis SNOMED-CT Code Diagnosis ICD10 Code Diagnosis Note [id number] ANDREA Oliver (BASE CLOTH INSPECTOR) [address] [place] [phone] 0 09/12/2014 11:00:22 09/12/2014 13:38:13 Gynecologic examination 80642164 History of hypertension 975568395 BP 150/110 today. Advised follow up with PCP. [id number] Sophie Julian (BASE CLOTH INSPECTOR) [address] [place] [address] 71402[address]918 0 12/08/2015 10:06:30 12/08/2015 12:04:40 Screening for osteoporosis 618770139 Z13.820 Screening mammography 24 905036 Z12.31 Gynecologi c examination 66922245 Z01.419 BP elevated. Recommende d follow up with PCP. [id number] Aimee Julian (BASE CLOTH INSPECTOR) [address] [place] [address] 01814-210 0 05/02/2016 10:49:27 05/06/2016 16:06:10 Gynecologic examination 57125649 Z01.419 BP elevated. Recommende d follow up with PCP. [id number] Viet Julian (BASE CLOTH INSPECTOR) [address] [place] [address] [phone] 0 08/17/2017 09:52:18 08/17/2017 11:10:47 Screening mammography 29931710 Z12.31 Essential hypertension 88847788 I10 Patient was sent directly to Urgent Care/ER, BP was 180/106 [id number] BETTINA Greenwood (Adult Med) [address] [place] [address] [phone] 0 09/06/2017 10:04:29 09/06/2017 12:14:23 Adult health examination 845070506 Z00.01 Screening for disorder 284692634 Z13.9 Family his tory of Hypertension 924299827 Z82.49 Obesity 272282038 E66.9 Advised 30 minutes of exercise 5 days/week Advised to not drink her calories Advised 3 balanced meals/day with plenty of fruits and vegetables Screening for malignant neoplasm of colon 885750156 Z12.11 [id number] MARIOLA Cabello (Adult Med) [address] [place] [address] [id number] 0 10/22/2018 10:22:06 10/23/2018 12:56:59 Adult health examination 105718627 Z00.01 Screening for disorder 760801939 Z13.9 Family his tory of Hypertension 566986275 Z82.49 BP 152/100 Patient will RTC in two week for BP heck Obesity 872747736 E66.9 Advised 30 minutes of exercise 5 days/week Advised to not drink her calories Advised 3 balanced meals/day with plenty of fruits and vegetables Screening for malignant neoplasm of colon 165079671 Z12.11 never colonoscop y, but would like to do it in the spring. Screening mammography 24 317475 Z12.31 [id number] Viet Gunnernicol Julian (BASE CLOTH INSPECTOR) [address] [place] [address] [phone] 0 12/04/2018 09:59:23 12/04/2018 16:05:41 Gynecologic examination 91711199 Z01.419 HPV+ pap in 2016 Screening for malignant neoplasm of colon 895674129 Z12.11 Hypertensive disorder 38 920562 I10 Prediabetes 720652875 R7 3.03 Menopausal syndrome 1237 89031 N95.9 Health Concerns Section Related Observation LastModified by Organization Detai ls LastModified Time None Recorded Concern Status LastModified by Organization Details LastModified Time None Recorded Advance Directives Directive Y: Payers Encounter Date Sequence Insurance Name Policy Number Policy Jones Covered Member ID Jones Member ID Guarantor Name 05/02/2016 1 [facility] [place] [facility] [place] [id number] Alida Carlton [id number] Alida Carlton 08/17/2017 [facility] Alida Carlton [id number] Alida Carlton 10/22/2018 1 [facility] [id number] Alida Carlton [id number] Alida Carlton 12/04/2018 1 [facility] [id number] Alida Carlton [id number] Alida Carlton 12/04/2018 2 [place] Alida Carlton [id number] Alida Carlton Notes Date Note Type Note Provider Name and Address Organization Details Recorded Time 05/02/2016 text/html Annual GYNReported bypatient.History :no gynecologic complaints Menstrual cycle:postmenopau shaji Urinary symptoms:No hematuria; no dysuria Vulva:No genital lesion Breast:No breast pain; No breast lump; No nipple discharge Bc huerta, [facility] 05/02/2016 15:53:47 08/17/2017 text/html 62 yo aaf presents for CBE + Mamm Viet huerta, [facility] 08/17/2017 12:30:27 09/06/2017 text/html 62YO AA female presents to establish care. States that she was advised to establish with PCP by Dr. Martino because she was upstairs and had elevated BP. STates that she did not go to Urgent Care or the ER because she thinks she was confused and didn't know that that is what they had advised her to do. States that at the time of her appointment upstairs she was going through some issues with her son and [id number] but those have now resolved and knows that that is why her BP was elevated. Racquel Kahn PA-C Attn: Accounting,[address] [facility], [place], [address], [facility] 09/06/2017 11:12:05 10/22/2018 text/html Patient presente d today for yearly lab work and mammogram,denies having any complaint today. 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 bypatient.Menopau shaji Symptoms:no menopausal symptoms; normal vaginal lubrication Vaginal Bleeding:history of menopause having occurred; no history of post menopausal bleeding Urinary Symptoms:no hematuria; no incontinence; no nocturia; no urinary frequency Vulva:no genital lesion; no vulvar atrophy Vagina:normal vaginal discharge; no vaginal atrophy Breast:no breast lump; no nipple discharge; no breast pain Sexual Complaints:no sexual complaints Psychological Symptoms:no depression; no anxiety Preventive Measures:encourag e regular mammograms starting age 40; encourage self breast examination; encourage regular exercise; encourage no tobacco use; mammogram performed within the past year; needs to schedule colonoscopy 63 y/o AAF 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 Viet huerta [facility] 12/04/2018 14:09:25 OBGyn Episode No OBEpisode recorded.
--- OUTSIDE RECORDS SUMMARY | 2024-12-02 08:51 | XMS_ITS | Patient Health Record ---
Author Organization [facility] Address [address] [address] Care Team Providers Care Conflicts Analyst Name Role Phone Bassam Connors DPM Primary Care Provider REASON FOR REFERRAL No Information SOCIAL HISTORY Sex Assigned At : Social History Observation Description Sex Assigned At Unknown Encounters Encounter Location Date Provider Diagnosis [facility] [address] [address] 05/10/2024 Bassam Connors DPM PLAN OF TREATMENT No Information
--- OUTSIDE RECORDS SUMMARY | 2024-12-02 08:51 | XMS_ITS ---
[facility] Address [address] [facility] [place] [address] Care Team Providers Care Screening Nurse Name Role Phone Sharonda Esqueda MD Primary Care Provider [phone] Active Problems Patient Care Coordination No te Formatting of this note migh t be different from the original. Primary Care: Sharonda Esqueda MD Referring Provider: Sharonda Esqueda MD [address] [place] [address] [place] [address] Other: Dr. Patience Shearer MD Problem Noted Date Diagnosed Date History of left breast cancer 02/21/2023 Malignant neoplasm of upper- outer quadrant of left breast in female, estrogen receptor positive 01/30/2020 Current Treatment and Therapy Plans No current plan information found. Past Treatment and Therapy Plans No past plan information found. Lifetime Dose Tracking * Chemical Lifetime Dose Automatic Entry Manual Entr y Effective Dose 19 mSv 19 mSv 0 mSv Total DLP 803 DLP 803 DLP 0 DLP CTDIvol Max 29.9 mGy 29.9 mGy 0 mGy CTDIvol Min 29.9 mGy 29.9 mGy 0 mGy
--- OUTSIDE RECORDS SUMMARY | 2024-12-02 08:51 | XMS_ITS | Encounter Summary ---
Author Organization [facility] Address [address] [place] [address] Care Team Providers Care On Call Pharmacy Technician Name Role Phone Sharonda Esqueda MD Primary Care Provider [phone]- [phone] Encounter Details Date Type Department Care Team (Late Contact Info) Description 04/01/2020 Chart Note [facility] Radiation Therapy [address] [place] [address] [place] [address] [place] [address] Social History Tobacco Use Types Packs/Day Years [...] have Coronavirus / COVID-19? No / Unsure 03/26/2020 10:04 AM CDT documented as of this encounter Plan of Treatment Upcoming Encounters Date Type Department Care Team (Late Contact Info) Description 12/16/2024 8:45 AM CDT Office Visit [facility] Oncology and Hematology - [place] [address] [place] [address] Dawson Jara MD [address] [facility] [address] [place] [address] documented as of this encounter Visit Diagnoses Not on filedocumented in this encounter Care Teams On Call Pharmacy Technician Relationship Specialty Start Date End Date Sharonda Esqueda MD PCP - General Internal Medicine 01/22/20 documented as of this encounter
--- OUTSIDE RECORDS SUMMARY | 2024-12-02 08:51 | XMS_ITS | Clinical Summary ---
Author Organization [facility] Address [address] [place] [address] Care Team Providers Care Procurement Accountant Name Role Phone Sharonda Esqueda MD Primary Care Provider [phone] Allergies No known active allergies Medications hydrochlorothi azide 12.5 MG tablet Take 12.5 mg by mouth every morning. FOR 14 DAYS 9 Active ibuprofen 800 MG tablet Take 800 mg by mouth every 8 (eight) hours as needed. 9 Active lisinopril 20 MG tablet Take 20 mg by mouth daily. 9 Active methylPREDNISo shirley JOYCE, 4 MG tabletIndicati ons:Minor head injury without loss of consciousness, subsequent encounter Take 1 tablet (4 mg total) by mouth see administration instructions. Follow package directions 1 each 0 Active Active Problems No known active problems Social History Tobacco Use Types Packs/Day Years Used Date Smoking Tobacco: Never Smokeless Tobacco: Never Comments Unknown Sex and Gender Information Value Date Recorded Sex Assigned at Not on file Legal Sex Female 1:46 PM ACCOUNTS PAYABLE ADMINISTRATOR Gender Identity Not on file Sexual Orientation Not on file Last Filed Vital Signs Vital Sign Reading Time Taken Comments Blood Pressure 136/84 11/11/2019 10:28 AM ACCOUNTS PAYABLE ADMINISTRATOR Pulse 66 11/11/2019 10:28 AM ACCOUNTS PAYABLE ADMINISTRATOR Temperature - - Respiratory Rate - - Oxygen Saturation - - Inhaled Oxygen Concentration - - Weight 86.7 kg (191 lb 3.2 oz) 11/11/2019 10:28 AM ACCOUNTS PAYABLE ADMINISTRATOR Height 160 cm (5' 3 ) 11/11/2019 10:28 AM ACCOUNTS PAYABLE ADMINISTRATOR Body Mass Index 33.87 11/11/2019 10:28 AM ACCOUNTS PAYABLE ADMINISTRATOR Plan of Treatment Health Maintenance Due Date Last Done Comments Colorectal Cancer Screening Colonoscopy (10 Years) 1953 Hepatitis C 1971 DTaP, Tdap and Td Vaccines ( 1 - Tdap) 1972 Mammogram Screening 1993 Zoster Vaccines (1 of 2) 2003 Annual Medicare Wellness Visit 2018 Pneumococcal Vaccine: 65+ Ye ars (1 of 1 - PCV) 2018 COVID-19 Vaccine (1 - 2023-2 5 season) 2024 Influenza Adult (#1) 2024 RSV Immunization or 60+ Years (1 - 1-dose 75+ series) 2028 Dexa Scan (General) Completed 07/13/2019 Meningococcal B Vaccine Aged Out No l onger eligible based on patient's age to complete this topic Meningococcal Vaccine Aged Out No bryan rk eligible based on patient's age to complete this topic RSV Immunizations Under 20 Months Aged Out No longer eligible based on patient's age to complete this topic Insurance [facility] Care Teams Procurement Accountant Relationship Specialty Start Date End Date Sharonda Esqueda MD [address] [place] [address] PCP - General INTERNAL MEDICINE 09/27/19
[2024-12-02 08:53] LABS: Blood Urea Nitrogen 13 mg/dL (8-26); Carbon Dioxide 29 mmol/L (22-30); Chloride 103 mmol/L (98-109); Estimated Glomerular Filt Rate > 60; Glucose 102 mg/dL (70-105); Ionized Calcium (POC) 1.18 mmol/L (1.11-1.31); Sodium 141 mmol/L (138-146)
[2024-12-02 10:09] LABS: Alanine Aminotransferase 18 U/L (6-35); Albumin Level 4.1 g/dL (3.5-5.1); Alkaline Phosphatase 61 U/L (38-126); Anion Gap 7 mmol/L (4-12); Aspartate Amino Transferase 24 U/L (14-36); Bilirubin,Total 0.7 mg/dL (0.2-1.3); Blood Urea Nitrogen 14 mg/dL (7-17); Calcium 9.2 mg/dL (8.4-10.2); Carbon Dioxide 30 mmol/L (22-30); Chloride 103 mmol/L (98-107); Estimated Glomerular Filt Rate > 60; Glucose 105 mg/dL (65-110); Potassium 4.1 mmol/L (3.4-5.0); Sodium 140 mmol/L (137-145)
[2024-12-04 01:49] LABS: CA 15-3 11 U/mL (<32)
== END 2024-12-02 08:28 | disposition home or self-care (01) ==
LOC: ANHLAB 08:28
PROVIDERS: PCP Internal Medicine; Visit Provider Internal Medicine Hematology & Oncology
DX: C50.412 Malignant neoplasm of upper-outer quadrant of left female breast (principal); Z17.0 Estrogen receptor positive status [ER+]
CPT/HCPCS: 36415; 80047; 80053; 85025; 86300

== ENCOUNTER 2024-12-16 09:12 | Outpatient (CLI) | payer MEDICARE, SELFPAY ==
--- OUTSIDE RECORDS SUMMARY | 2024-12-16 09:54 | XMS_ITS | Encounter Summary ---
Author Organization [facility] [employer] [facility] Address [address] [place] [address] Care Team Providers Care Saw Edge Fuser Circular Name Role Phone Sharonda Esqueda MD Primary Care Provider [phone]- [phone] Reason for Visit * Reason Comments Medication Refill Encounter Details Date Type Department Care Team ([facility] Contact Info) Description 10/09/2021 Refill [facility] Oncology and Hematology - [place] [address] [place] [address] [address] [place] [address] Dawson Jara MD [address] [facility] [address] [place] [address] Malignant neoplasm of upper-outer quadrant [...] COVID-19? No / Unsure 10/07/2021 8:56 AM PRESCRIPTION CLERK documented as of this encounter Plan of Treatment Upcoming Encounters Date Type Department Care Team (Late Contact Info) Description 12/23/2024 4:30 PM CDT Telephone Check Up [facility] Oncology and Hematology [place] [address] [place] [address] [place] [address] [place] [address] [place] [phone] 06/27/2025 8:30 AM CDT Office Visit [facility] Oncology and Hematology [facility] [address] [place] [address] [place] [address] [place] [address] [place] [phone] documented as of this encounter Visit Diagnoses Diagnosis Malignant neoplasm of upper-outer quadrant of left breast in female, estrogen receptor positive (CMS/HCC) documented in this encounter Care Teams Saw Edge Fuser Circular Relationship Specialty Start Date End Date Sharonda Esqueda MD PCP - General Internal Medicine 01/22/20 documented as of this encounter
--- OUTSIDE RECORDS SUMMARY | 2024-12-16 09:54 | XMS_ITS | Encounter Summary ---
Author Organization [facility] [employer] [facility] Address [address] [place] [address] Care Team Providers Care Social Service Director Name Role Phone Sharonda Esqueda MD Primary Care Provider [phone]- [phone] Reason for Visit * Reason Comments Cancer Follow Up Encounter Details Date Type Department Care Team (Late st Contact Info) Description 12/16/2024 8:45 AM CDT Office Visit [facility] Oncology and Hematology - [place] [address] [place] [address] Dawson Jara MD [address] [facility] [address] [place] [address] Malignant neoplasm of upper-outer quadrant of left breast in female, estrogen receptor positive (CMS/HCC) (Primary Dx); Anemia, chronic disease Social History Tobacco Use Types Packs/Day Years [...] on file Sexual Orientation Not on file documented as of this encounter Last Filed Vital Signs Vital Sign Reading Time Taken Comments Blood Pressure 131/86 12/16/2024 8:44 AM CDT Pulse 70 12/16/2024 8:44 AM CDT Temperature 36.7 C (98.1 F) 12/16/2024 8:44 AM CDT Respiratory Rate 16 12/16/2024 8:44 AM CDT Oxygen Saturation 96% 12/16/2024 8:44 AM CDT Inhaled Oxygen Concentration - - Weight 85.5 kg (188 lb 9.6 oz) 12/16/2024 8:44 A M CDT Height - - Body Mass Index 33.41 02/21/2023 9:56 AM CDT documented in this encounter Progress Notes * Dawson Jara MD - 12/16/2024 8:47 AM CDT HEMATOLOGY / ONCOLOGY PROGRESS NOTE Patient Identification: Name: Alida Carlton Age: 69 y.o. 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 Tumor grade 2 ER CA 100% positive HER-2/sofia 2+ on IHC and FISH negative Ki-67 50%. Oncotype DX recurrence score of 15 CURRENT TREATMENT Arimidex started May 20, 2020 TREATMENT HISTORY Breast Lumpectomy With Needle Localization At 0700 - Left and Axillary Glasgow Lymph Node Biopsy With Nuc Med At 0800 - Left on 03/09/2020. Radiation therapy completed May 15, 2020 SUBJECTIVE Patient came to the office for follow-up visit. She is taking anastrozole and tolerating it well. Denies any night sweats and hot flashes. Denies any musculoskeletal discomfort. Weight and appetite stable. No other new complaints. Review of system Constitutional: denies fevers, sweats, weight and appetite stable, denies any tiredness and fatigue HEENT: denies sinus congestion, hearing or vision problems Respiratory: denies cough, dyspnea, wheeze Cardiovascular: denies chest pain, exertional chest pressure/discomfort, nausea, syncope, shortnessof breath GI: denies constipation, diarrhea, dsyphagia, reflux symptoms, vomiting, melena : denies dysuria, frequency, incontinence, urgency Integumentary system: no lymphadenopathy, sweats, flushing Musculoskeletal: denies: myalgia, stable shoulder arthralgia Neurological: denies blurry or disturbed vision, numbness/weakness, dizziness Skin: No lumps, bumps or rashes. 12 point review of system was reviewed Objective: Vital signs in last 24 hours: As per nursing note Exam: General appearance: alert, cooperative, no distress, appears stated age Head: normocephalic, without obvious abnormality, atraumatic Eyes: conjunctivae/corneas clear, EOM's intact Ears: normal external ear canals AU Nose: Nares normal. Septum midline. Mucosa normal. No drainage or sinus tenderness Throat: Lips, mucosa, and tongue normal. Teeth and gums normal Neck: supple, symmetrical, trachea midline. Lungs: clear to auscultation bilaterally Heart: regular rate and rhythm, S1, S2 normal, no murmur, click, rub or gallop Abdomen: soft, non-tender. Bowel sounds normal. No masses, No organomegaly Extremities: extremities normal, atraumatic, no cyanosis or edema Skin: Skin color, texture, turgor normal. No rashes or lesions Lymph nodes: No lymphadenopathy Neuro: No obvious focal deficit Bilateral breast examination showed postoperative and radiation changes in the left breast without any masses or lymphadenopathy. Exam as above PATH FINAL DIAGNOSIS Glasgow lymph node, left axillary, biopsy: - Three lymph nodes negative for metastatic carcinoma (0/3; pN0(sn)). Breast, left, lumpectomy with needle localization: - Invasive ductal carcinoma: 1. Size: 14 x 8 x 7 mm. 2. [place] score: 8 (tubule formation-3; nuclear pleomorphism-2; mitotic index-3). 3. Margins: Present at inferior margin (over a distance of 2.5 mm; see comment). 4. Lymphvascular invasion: Present. 5. Stage: pT1c. - Repeat HER-2 by IHC: Equivocal (2+); HER-2 FISH pending. - Spatially separate intramammary metastasis of invasive ductal carcinoma (1.5 mm); 4 mm from the inferior margin. - Ductal carcinoma in situ (DCIS): 1. Size: 7 mm. 2. Grade: Intermediate-grade; cribriform and solid with central comedonecrosis. 3. Margins: 2 mm from the inferior margin - Radial scar, x3. - Intraductal papilloma. - Florid usual ductal hyperplasia. - Sclerosing adenosis. - Fibrocystic changes. - Prior biopsy site ([id number]). Breast, left, additional superior lateral margin, excision: - Benign breast tissue with usual ductal hyperplasia and fibrocystic changes. Breast, left, inferior margin, excision: - Focus of invasive ductal carcinoma (size = less than 1 mm); 3 mm from the new inferior margin. - Sclerosing adenosis, usual ductal hyperplasia, and fibrocystic changes. Breast, left, posterior margin, excision: - Benign breast tissue with fibrocystic changes. Breast, left, medial margin, excision: - Benign breast tissue with usual ductal hyperplasia and fibrocystic changes. LABS Labs from January 28, 2021 showed creatinine 1.0 total bilirubin 0.2 WBC 5.7 hemoglobin 12.5 platelet 244,000 CA 15-3 8 Labs from August 23 showed creatinine 0.9 total bilirubin 0.3 WBC 6.4 hemoglobin 12.1 platelet 232,000 CA 15-3 7 Labs from December 23 showed CA 15-3 7 creatinine 0.9 total bilirubin 0.3 WBC 5.9 hemoglobin 12.1 platelet 237,000 Labs from July 05 showed WBC 6.4 hemoglobin 12.2 platelet 233,000. Labs from February 04 showed CA 15-3 10 creatinine 0.8 total bilirubin 0.5 hemoglobin 11.9 WBC 6.8 platelet 221,000 Labs from December 02 showed creatinine 0.9 hemoglobin 10.6 CA 15-3 11 Assessment: Plan: Patient Active Problem List Diagnosis Date Noted History of left breast cancer 02/21/2023 Malignant neoplasm of upper-outer quadrant of left breast in female, estrogen receptor positive ([facility]) 01/30/2020 T1 a N0 M0 stage I invasive ductal carcinoma of the left breast status post left breast lumpectomy and left axillary sentinel lymph node biopsy done on March 09, 2020. Patient had ultrasound-guided biopsy done on January 12, 2022. Tumor grade 2 ER CA 100% positive HER-2/sofia 2+ on IHC and FISH negativeKi-67 50%. Oncotype DX recurrence score of 15. ? Breast MRI was performed on February 11 that showed no evidence of malignancy in the right breast. In the left breast 2 x 1.5 x 1.6 cm mass upper outer quadrant 8.2 cm from the nipple. There was a non-mass enhancement measures 1.9 x 0.6 x 2.4 cm in the lower outer quadrant of the left breast 9.7 cm fromthe nipple. There was suspicious abnormality in the upper outer quadrant of the left breast at 1 o'c lock position measures 1.6 x 1.3 x 1.6 cm 5.8 cm from the nipple. There were multiple bottle line size left axillary lymph node suspicious for malignancy. Patient completed radiation therapy treatment May 15, 2020. Arimidex started in May 2020. There is no evidence of relapse of disease on my examination. She will continue anastrozole until May 2025. Repeat mammogram will be done in April 2025. Follow-up in 6 months. After next appointment we will see her back on yearly basis. Anemia. I will check iron and vitamin B12 level today and phone visit in 1 week. Bone health. Continue vitamin D and calcium. 12/16/2024 Dawson Jara MD documented in this encounter Plan of Treatment Upcoming Encounters Date Type Department Care Team (Late st Contact Info) Description 12/23/2024 4:30 PM CDT Telephone Check Up [facility] Oncology and [place] [address] [place] [address] [facility] [address] [place] [phone] 06/27/2025 8:30 AM CDT Office Visit [facility] Oncology and [facility] [address] [place] [address] Dawson Jara MD [address] [place] [address] [facility] [address] [place] [phone] Scheduled Orders Name Type Priority Associated Diagnoses Orde r Schedule CANCER ANTIGEN 15-3 Lab Routine Malignant neoplasm of upper-outer quadrant of left breast in female, estrogen receptor positive (CMS/HCC) Expected: 06/17/2025, Expires: 12/16/2025 CBC WITH DIFFERENTIAL Lab Stat Malignant neoplasm of upper-outer quadrant of left breast in female, estrogen receptor positive (CMS/HCC) Expected: 06/17/2025, Expires: 12/16/2025 COMPREHENSIVE METABOLIC PANEL Lab Stat Malignant neoplasm of upper-outer quadrant of left breast in female, estrogen receptor positive (CMS/HCC) Expected: 06/17/2025, Expires: 12/16/2025 FERRITIN Lab Routine Anemia, chronic disease Expected: 12/16/2024, Expires: 12/16/2025 IRON, TIBC, AND PERCENT SATURATION Lab Routine Anemia, chronic disease Expected: 12/16/2024, Expires: 12/16/2025 VITAMIN B12 LEVEL Lab Routine Anemia, chronic disease Expected: 12/16/2024, Expires: 12/16/2025 documented as of this encounter Visit Diagnoses Diagnosis Malignant neoplasm of upper-outer quadrant of left breast in female, estrogen receptor positive (CMS/HCC)- Primary Anemia, chronic disease Anemia of other chronic disease documented in this encounter Care Teams Social Service Director Relationship Specialty Start Date End Date Sharonda Esqueda MD PCP - General Internal Medicine 01/22/20 documented as of this encounter
--- OUTSIDE RECORDS SUMMARY | 2024-12-16 09:54 | XMS_ITS ---
Author [facility] Address [address] [facility] [place] [address] Care Team Providers Care Rivet Thrower Name Role Phone Sharonda Esqueda MD Primary Care Provider [phone] Active Problems Patient Care Coordination No te Formatting of this note migh t be different from the original. Primary Care: Sharonda Esqueda MD Referring Provider: Sharonda Esqueda MD [address] [place] [address] [place] [address] Other: Dr. Patience Shearer MD Problem Noted [...]
--- OUTSIDE RECORDS SUMMARY | 2024-12-16 09:54 | XMS_ITS | Clinical Summary ---
Author Organization [facility] Address [address] [place] [address] Care Team Providers Care Automobile Seat Cover Installer Name Role Phone Sharonda Esqueda MD Primary Care Provider [phone] Allergies No known active allergies Medications hydrochlorothi [...] on file Legal Sex Female 1:46 PM PILLOWCASE FOLDER Gender Identity Not on file Sexual Orientation Not on file Last Filed Vital Signs Vital Sign Reading Time Taken Comments Blood Pressure 136/84 11/11/2019 10:28 AM PILLOWCASE FOLDER Pulse 66 11/11/2019 10:28 AM PILLOWCASE FOLDER Temperature - - Respiratory Rate - - Oxygen Saturation - - Inhaled Oxygen Concentration - - Weight 86.7 kg (191 lb 3.2 oz) 11/11/2019 10:28 AM PILLOWCASE FOLDER Height 160 cm (5' 3 ) 11/11/2019 10:28 AM PILLOWCASE FOLDER Body Mass Index 33.87 11/11/2019 10:28 AM PILLOWCASE FOLDER Plan of Treatment Health Maintenance Due Date Last Done Comments Colorectal Cancer Screening Colonoscopy (10 Years) 1955 Hepatitis C 1971 DTaP, Tdap and Td Vaccines ( 1 - Tdap) 1972 Mammogram Screening 1993 Zoster Vaccines (1 of 2) 2003 Annual Medicare Wellness Visit 2018 Pneumococcal Vaccine: 65+ Ye ars (1 of 1 - PCV) 2018 COVID-19 Vaccine (1 - 2023-2 5 season) 2024 RSV Immunization or 60+ Years (1 [...] patient's age to complete this topic Insurance [facility] Care Teams Automobile Seat Cover Installer Relationship Specialty Start Date End Date Sharonda Esqueda MD [address] [place] [id number] PCP - General INTERNAL MEDICINE 09/27/19
--- OUTSIDE RECORDS SUMMARY | 2024-12-16 09:54 | XMS_ITS | Data Portability ---
Author Organization [facility] Address [address] [place] [address] Assessment No assessment recorded. Plan of Treatment Reminders Order Date Submit Date Provider Last Modified By Organization Details Last Modified Time Details Appointments None recorded. Lab pap, IG + HPV, cervical 2018 019 BRIGGS [facility], [address], [address], [place], [address], 9 14:12:00 urinalysi s, dipstick 2018 019 [facility] In-Office Order, Internal Use Only DO Not Attach Compendium DO Not Attach Compendium, Do Not Delete/merge, [id number] 9 14:37:46 fecal occult blood, stool 2018 019 BRIGGS In-Office Order, Internal Use Only DO Not Attach Compendium DO Not Attach Compendium, Do Not Delete/merge, [id number] 9 08:53:12 HIV 1+2 AB + HIV 1 p24 Ag, qualitati ve immunoass ay, serum 2018 019 KRISTY [facility], [address], [address], [place], [address], 9 06:17:30 hepatitis C Ab, signal-to -cutoff, serum or plasma 2018 019 KRISTY [facility], [address], [address], [place], [address], 9 06:17:30 HbA1c (hemoglob in A1c), blood 2018 019 KRISTY [facility], [address], [address], [place], [address], 9 06:17:29 TSH, ultra-sen sitive, serum 2018 019 KRISTY [facility], [address], [address], [place], [address], 9 06:17:29 CMP, serum or plasma 2018 019 KRISTY [facility], [address], [address], [place], [address], 9 06:17:28 lipid panel, serum 2018 019 KRISTYMICHAEL [facility], [address], [address], [place], [address], 9 06:17:28 CBC w/ auto diff 2018 019 KRISTY [facility], [address], [address], [place], [address], 9 06:17:27 HIV 1+2 AB + HIV 1 p24 Ag, qualitati ve immunoass ay, serum 2016 017 KRISTYMICHAEL [facility], [address], [address], [place], [address], 7 06:16:36 hepatitis C Ab, signal-to -cutoff, serum or plasma 2016 017 KRISTY Layne, [address], [address], [place], [address], 7 06:16:36 HbA1c (hemoglob in A1c), blood 2016 017 KRISTY Layne, [address], [address], [place], [address], 7 06:16:35 TSH, ultra-sen sitive, serum 2016 017 [facility], [address], [address], [place], [address], 7 06:16:37 hemoglobi n, qualitati ve, stool by immunolog ic method 2016 017 [facility], [address], [address], [place], [address], 8 19:08:15 CMP, serum or plasma 2016 017 [facility], [address], [address], [place], [address], 7 06:16:34 lipid panel, serum 2016 017 [facility], [address], [address], [place], [address], 7 06:16:35 test, urine 2015 016 [email or web address] In-Office Order, Internal Use Only DO Not Attach Compendium DO Not Attach Compendium, Do Not Delete/merge, [id number] 6 14:40:52 urinalysi s, dipstick 2015 016 [email or web address] In-Office Order, Internal Use Only DO Not Attach Compendium DO Not Attach Compendium, Do Not Delete/merge, [id number] 6 14:40:52 pap, IG + HPV, cervical 2015 016 [facility], [address], [address], [place], [address], 6 14:19:29 Referral colonosco py referral 2018 019 lois Rosario MD, [address], [place], [address], 9 12:55:21 gastroent erologist referral 2018 019 [facility] lab[facility] Not available 9 10:57:10 Procedures None recorded. Surgeries None recorded. Imaging MAMMO, screening , bilateral 2018 019 [facility] ([facility]), [address] [place], [address], 9 10:57:10 MAMMO, screening , digital, bilateral 2018 019 [facility] ([facility]), [address] [place], [address], 9 14:34:19 MAMMO, screening , bilateral - IBCCP 2016 017 [facility] ([facility]), [address] [place], [address], 7 13:14:11 Medication Orders amlodipin e 10 mg-atorva statin 20 mg tablet 2018 019 [facility], [address] [place] [address], [address], 9 17:01:57 glimepiri de 1 mg tablet 2018 019 [facility], [address] [place] [address], [address], 9 11:21:40 Patient TargetsNo targets recorded. Patient Instructions Encounter Date Encounter Id Patient Instructions Last Modified By Organization Details Last Modified Time 05/02/2016 [id number] Patient is a 60 y/o postmenopausal female who presents for repeat pap smear. Last pap was 12/08/15 with normal cytology and +HPV. Repeat pap was recommended at 6months. Pap obtained today. Patient reports no gynecologic complaints at this visit. 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 for malignant neoplasm of colon Referring Physician: Chery Templeton, Family Medicine, Encounter Date: 10/22/2018 Colonoscopy Referral for Scr eening for malignant neoplasm of colon Referring Physician: Viet Martino, HOTEL MAINTENANCE WORKER, Encounter Date: 12/04/2018 Results Created Date Observation Date Name Description Value Unit Range Abnormal Flag Note LastModifiedBy Organization Detail LastModifiedTime 12/05/1912/04/2018 urina lysis , dipst ick Leukocytes Negati ve Not Available In-Office Order Internal Use Only DO Not Attach Compendium DO Not Attach Compendium, Do Not Delete/merge, [id number] 12/04/2018 10:53:53 12/05/1912/04/2018 urina lysis , dipst ick Nitrite negati ve Not Available In-Office Order Internal Use Only DO Not Attach Compendium DO Not Attach Compendium, Do Not Delete/merge, [id number] 12/04/2018 10:53:53 12/05/1912/04/2018 urina lysis , dipst [...] 12/05/1912/04/2018 urina lysis , dipst ick Specific Centre 1.025 Not Available In-Off ice Order Internal [...] 05/02/2016 urina lysis , dipst ick Specific Centre 1.030 Not Available In-Off ice Order Internal Use Only DO Not Attach Compendium DO Not Attach Compendium, Do Not Delete/merge, 05/02/2016 11:19:10 05/02/20 16 05/02/2016 urina lysis , dipst ick Ketone Negati ve Not Available In-Office Order Internal Use Only DO Not Attach Compendium DO Not Attach Compendium, Do Not Delete/merge, [id number] 05/02/2016 11:19:10 05/02/20 16 05/02/2016 urina lysis , dipst ick Bilirubin Small Not Available In-Offic e Order Internal Use Only DO Not Attach Compendium DO Not Attach Compendium, Do Not Delete/merge, [id number] 05/02/2016 11:19:10 05/02/20 16 05/02/2016 urina lysis , dipst ick Glucose Negati ve Not Available In-Office Order Internal Use Only DO Not Attach Compendium DO Not Attach Compendium, Do Not Delete/merge, [id number] 05/02/2016 11:19:10 05/02/20 16 05/02/2016 pregn sebastián test, urine HCG negati ve Not Available In-Office Order Internal Use Only DO Not Attach Compendium DO Not Attach Compendium, Do Not Delete/merge, [id number] 05/02/2016 11:19:09 05/02/20 16 05/04/2016 pap, IG + HPV, cervi robbie HPV aptima POSITI VE negati ve abnormal THIS TEST DETEC TS FOURT EEN HIGH- RISK HPV TYPES (16/1 8/31/ 33/35 /39/4 5/ 51/52 /56/5 8/59/ 66/68 ) WITHO UT DIFFE RENTI ATION . Not Available [facility] ([facility]) [address] [facility], [place], [address], 05/05/2016 14:19:29 05/02/20 16 05/05/2016 pap, IG + HPV, cervi robbei diagnosis: COMMEN T NEGAT LISA FOR INTRA [...] C ACID (GAA) . Not Available [facility] ([facility]) [address] [facility], [place], [address], 05/05/2016 14:19:29 05/02/20 16 05/05/2016 pap, IG + HPV, cervi robbie specimen adequacy: LINN Rodríguez SATIS FACTO RY FOR EVALU ATION . PARTI ALLY OBSCU RING THICK AREAS ARE PRESE NT. Not Available [facility] ([facility]) [address] [place], [address], 05/05/2016 14:19:29 05/02/20 16 05/05/2016 pap, IG + HPV, cervi robbie clinician provided ICD10: LINN Rodríguez Z01.4 19 Not Available [facility] ([facility]) [address] [place], [address], 05/05/2016 14:19:29 05/02/20 16 05/05/2016 pap, IG + HPV, cervi robbie performed by: REKHA VITAL (ASCP ) Not Available [facility] ([facility]) [address] [place], [address], 05/05/2016 14:19:29 05/02/20 16 05/05/2016 pap, IG + HPV, cervi robbie . . Not Available [facility] ([facility]) [address] [place], [address], 05/05/2016 14:19:29 05/02/20 16 05/05/2016 pap, IG + HPV, cervi robbie pathologist provided ICD10: LINN Rodríguez R87.5 Not Available [facility] ([facility]) [address] [place], [address], 05/05/2016 14:19:29 05/02/20 16 05/05/2016 pap, IG [...] TS DO OCCUR . Not Available [facility] ([facility]) [address] [facility], [address], 05/05/2016 14:19:29 05/02/20 16 05/05/2016 pap, IG + HPV, cervi robbie test methodology: TNP THE THIN PREP( R) IMAGE R WAS UNABL E TO READ THIS SPECI MEN. THERE FORE A MANUA L REVIE W WAS PERFO RMED. Not Available [facility] ([facility]) [address] [facility], [place], [address], 05/05/2016 14:19:29 09/07/20 17 09/08/2017 CMP, serum or plasm a glucose, serum 91 mg/dL 65-99 Not Available [facility] ([facility]) [address] [place], [address], 09/08/2017 06:16:34 09/07/20 17 09/08/2017 CMP, serum or plasm a BUN 13 mg/dL 8-27 Not Available [facility] ([facility]) [address] [place], [address], 09/08/2017 06:16:34 09/07/20 17 09/08/2017 CMP, serum or plasm a creatinine, serum 0.72 mg/dL 0.57-1 .00 Not Available [facility] ([facility]) [address] [place], [address], 09/08/2017 06:16:34 09/07/20 17 09/08/2017 CMP, serum or plasm a eGFR if nonafricn AM 89 mL/mi n/1.7 3 >59 Not Available [facility] ([facility]) [address] [place], [address], 09/08/2017 06:16:34 09/07/20 17 09/08/2017 CMP, serum or plasm a eGFR if africn AM 102 mL/mi n/1.7 3 >59 Not Available [facility] ([facility]) [address] [facility] [place], [address], 09/08/2017 06:16:34 09/07/20 17 09/08/2017 CMP, serum or plasm a BUN/creatini ne ratio 18 12-28 Not Available [facility] ([facility]) [address] [facility] [place], [address], 09/08/2017 06:16:34 09/07/20 17 09/08/2017 CMP, serum or plasm a sodium, serum 146 mmol/ L 134-14 4 above high normal Not Available [facility] ([facility]) [address] [facility] [place], [address], 09/08/2017 06:16:34 09/07/20 17 09/08/2017 CMP, serum or plasm a potassium, serum 4.2 mmol/ L 3.5-5. 2 Not Available [facility] ([facility]) [address] [facility], [address], 09/08/2017 06:16:34 09/07/20 17 09/08/2017 CMP, serum or plasm a chloride, serum 105 mmol/ L 96-106 Not Available [facility] ([facility]) [address] [facility] [place], [address], 09/08/2017 06:16:34 09/07/20 17 09/08/2017 CMP, serum or plasm a carbon dioxide, total 29 mmol/ L 18-29 Not Available [facility] ([facility]) [address] [facility], [address], 09/08/2017 06:16:34 09/07/20 17 09/08/2017 CMP, serum or plasm a calcium, serum 8.4 mg/dL 8.7-10 .3 below low normal Not Available [facility] ([facility]) [address] [facility], [address], 09/08/2017 06:16:34 09/07/20 17 09/08/2017 CMP, serum or plasm a protein, total, serum 6.3 g/dL 6.0-8. 5 Not Available [facility] ([facility]) [address] [facility], [address], 09/08/2017 06:16:34 09/07/20 17 09/08/2017 CMP, serum or plasm a albumin, serum 3.7 g/dL 3.6-4. 8 Not Available [facility] ([facility]) [address] [facility], [address], 09/08/2017 06:16:34 09/07/20 17 09/08/2017 CMP, serum or plasm a globulin, total 2.6 g/dL 1.5-4. 5 Not Available [facility] ([facility]) [address] [place], [address], 09/08/2017 06:16:34 09/07/20 17 09/08/2017 CMP, serum or plasm a A/G ratio 1.4 1.2-2. 2 Not Available [facility] ([facility]) [address] [facility], [address], 09/08/2017 06:16:34 09/07/20 17 09/08/2017 CMP, serum or plasm a bilirubin, total 0.2 mg/dL 0.0-1. 2 Not Available [facility] ([facility]) [address] [place], [address], 09/08/2017 06:16:34 09/07/20 17 09/08/2017 CMP, serum or plasm a alkaline phosphatase, S 53 IU/L 39-117 Not Available [facility] ([facility]) [address] [place], [address], 09/08/2017 06:16:34 09/07/20 17 09/08/2017 CMP, serum or plasm a AST (SGOT) 12 IU/L 0-40 Not Available [facility] ([facility]) [address], [place], [address], 09/08/2017 06:16:34 09/07/20 17 09/08/2017 CMP, serum or plasm a ALT (SGPT) 7 IU/L 0-32 Not Available [facility] ([facility]) [address] [facility] [place], [address], 09/08/2017 06:16:34 09/07/20 17 09/08/2017 lipid panel , serum cholesterol, total 173 mg/dL 100-19 9 Not Available [facility] ([facility]) [address] [facility] [place], [address], 09/08/2017 06:16:35 09/07/20 17 09/08/2017 lipid panel , serum triglyceride s 57 mg/dL 0-149 Not Available [facility] ([facility]) [address] [facility], [place], [address], 09/08/2017 06:16:35 09/07/20 17 09/08/2017 lipid panel , serum HDL cholesterol 55 mg/dL >39 Not Available [facility]) [address] [facility], [address], 09/08/2017 06:16:35 09/07/20 17 09/08/2017 lipid panel , serum VLDL cholesterol robbie 11 mg/dL 5-40 Not Available [facility] ([facility]) [address] [facility], [address], 09/08/2017 06:16:35 09/07/20 17 09/08/2017 lipid panel , serum LDL cholesterol calc 107 mg/dL 0-99 above high normal Not Available [facility] (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) [address] [facility], [place], [address], 09/08/2017 06:16:35 09/07/20 17 09/08/2017 lipid panel , serum T. chol/HDL ratio 3.1 ratio _unit s 0.0-4. 4 T. Chol/ HDL Ratio Men Women 1/2 Avg.R isk 3.4 3.3 Avg.R isk 5.0 4.4 2X Avg.R isk 9.6 7.1 3X Avg.R isk 23.4 11.0 Not Available [facility] ([facility]) [address] [facility], [place], [address], 09/08/2017 06:16:35 09/07/20 17 09/08/2017 HbA1c (hemo globi n A1c), blood hemoglobin A1C 5.9 % 4.8-5. 6 above high normal Pre-d iabet es: 5.7 - 6.4 Diabe marie: >6.4 Glyce arielle contr ol for adult s with diabe marie: <7.0 Not Available [facility] ([facility]) [address] [facility], [place], [address], 09/08/2017 06:16:35 09/07/20 17 09/08/2017 HIV 1+2 AB + HIV 1 p24 Ag, quali tativ e immun oassa y, serum HIV screen 4TH generation wrfx NON REACTI VE non reacti ve Not Available [facility] ([facility]) [address] [facility], [place], [address], 09/08/2017 06:16:36 09/07/20 17 09/07/2017 hepat itis C Ab, signa l-to- cutof f, serum or plasm a comment: COMMEN T Non react lisa HCV antib liat scree n is consi stent with no HCV infec tion, unles s recen t infec tion is suspe cted or other evide nce exist s to indic ate HCV infec tion. Not Available [facility] ([facility]) [address] [facility], [place], [address], 09/08/2017 06:16:36 09/07/20 17 09/08/2017 hepat itis C Ab, signa l-to- cutof f, serum or plasm a HCV Ab <0.1 s/co_ ratio 0.0-0. 9 Not Available [facility] ([facility]) [address] [facility], [address], 09/08/2017 06:16:36 09/07/20 17 09/08/2017 TSH, ultra -sens itive , serum TSH 2.350 uIU/m L 0.450- 4.500 Not Available [facility] ([facility]) [address] [facility], [address], 09/08/2017 06:16:37 10/05/19 18 10/06/2017 hemog lobin , quali tativ e, stool by immun ologi c metho d occult blood, fecal, ia NEGATI VE negati ve Not Available [facility] ([facility]) [address] [facility], [place], [address], 10/06/2017 19:08:14 10/05/19 18 10/05/2017 pleas e note please note COMMEN T The date and/o r time of colle ction was not indic ated on the requi sitio n as requi red by state and [place] law. The date of recei pt of the speci men was used as the colle ction date if not suppl ied. Not Available [facility] ([facility]) [address] [facility], [place], [address], 10/06/2017 19:08:17 10/22/1910/22/2018 CBC w/ auto diff WBC 5.7 x10e3 /uL 3.4-10 .8 Not Available [facility] ([facility]) [address] [facility], [address], 10/23/2018 06:17:27 10/22/1910/22/2018 CBC w/ auto diff RBC 4.28 x10e6 /uL 3.77-5 .28 Not Available [facility] ([facility]) [address] [place], [address], 10/23/2018 06:17:27 10/22/19 19 10/22/2018 CBC w/ auto diff hemoglobin 11.9 g/dL 11.1-1 5.9 Not Available [facility] ([facility]) [address] [place], [address], 10/23/2018 06:17:27 10/22/19 19 10/22/2018 CBC w/ auto diff hematocrit 36.4 % 34.0-4 6.6 Not Available [facility] ([facility]) [address] [place], [address], 10/23/2018 06:17:27 10/22/1910/22/2018 CBC w/ auto diff MCV 85 fL 79-97 Not Available [facility] ([facility]) [address] [place], [address], 10/23/2018 06:17:27 10/22/1910/22/2018 CBC w/ auto diff MCH 27.8 pg 26.6-3 3.0 Not Available [facility] ([facility]) [address] [place], [address], 10/23/2018 06:17:27 10/22/1910/22/2018 CBC w/ auto diff MCHC 32.7 g/dL 31.5-3 5.7 Not Available [facility] ([facility]) [address] [place], [address], 10/23/2018 06:17:27 10/22/1910/22/2018 CBC w/ auto diff RDW 14.7 % 12.3-1 5.4 Not Available [facility] ([facility]) [address] [place], [address], 10/23/2018 06:17:27 10/22/19 19 10/22/2018 CBC w/ auto diff platelets 264 x10e3 /uL 150-37 9 Not Available [facility] ([facility]) [address] [place], [address], 10/23/2018 06:17:27 10/22/19 19 10/22/2018 CBC w/ auto diff neutrophils 43 % not estab. Not Available [facility] ([facility]) [address] [facility], [place], [address], 10/23/2018 06:17:27 10/22/1910/22/2018 CBC w/ auto diff lymphs 47 % not estab. Not Available [facility] ([facility]) [address] [place], [address], 10/23/2018 06:17:27 10/22/1910/22/2018 CBC w/ auto diff monocytes 7 % not estab. Not Available [facility] ([facility]) [address] [place], [address], 10/23/2018 06:17:27 10/22/1910/22/2018 CBC w/ auto diff eos 2 % not estab. Not Available [facility] ([facility]) [address] [facility], [place], [address], 10/23/2018 06:17:27 10/22/1910/22/2018 CBC w/ auto diff basos 1 % not estab. Not Available [facility] (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) [address] [place], [address], 10/23/2018 06:17:27 10/22/1910/22/2018 CBC w/ auto diff neutrophils (absolute) 2.5 x10e3 /uL 1.4-7. 0 Not Available [facility] ([facility]) [address] [place], [address], 10/23/2018 06:17:27 10/22/19 19 10/22/2018 CBC w/ auto diff lymphs (absolute) 2.7 x10e3 /uL 0.7-3. 1 Not Available [facility] ([facility]) [address] [place], [address], 10/23/2018 06:17:27 10/22/1910/22/2018 CBC w/ auto diff monocytes(ab solute) 0.4 x10e3 /uL 0.1-0. 9 Not Available [facility] ([facility]) [address] [place], [address], 10/23/2018 06:17:27 10/22/1910/22/2018 CBC w/ auto diff eos (absolute) 0.1 x10e3 /uL 0.0-0. 4 Not Available [facility] ([facility]) [address] [place], [address], 10/23/2018 06:17:27 10/22/1910/22/2018 CBC w/ auto diff baso (absolute) 0.0 x10e3 /uL 0.0-0. 2 Not Available [facility] ([facility]) [address] [place], [address], 10/23/2018 06:17:27 10/22/1910/22/2018 CBC w/ auto diff immature granulocytes 0 % not estab. Not Available [facility] ([facility]) [address] [place], [address], 10/23/2018 06:17:27 10/22/1910/22/2018 CBC w/ auto diff immature grans (abs) 0.0 x10e3 /uL 0.0-0. 1 Not Available [facility] (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) [address] [place], [address], 10/23/2018 06:17:27 10/22/1910/23/2018 CMP, serum or plasm a glucose 98 mg/dL 65-99 Not Available [facility] ([facility]) [address] [place], [address], 10/23/2018 06:17:28 10/22/1910/23/2018 CMP, serum or plasm a BUN 17 mg/dL 8-27 Not Available [facility] ([facility]) [address] [place], [address], 10/23/2018 06:17:28 10/22/1910/23/2018 CMP, serum or plasm a creatinine 0.75 mg/dL 0.57-1 .00 Not Available [facility] ([facility]) [address] [place], [address], 10/23/2018 06:17:28 10/22/1910/23/2018 CMP, serum or plasm a eGFR if nonafricn AM 84 mL/mi n/1.7 3 >59 Not Available [facility] ([facility]) [address] [place], [address], 10/23/2018 06:17:28 10/22/19 19 10/23/2018 CMP, serum or plasm a eGFR if africn AM 97 mL/mi n/1.7 3 >59 Not Available [facility] ([facility]) [address] [facility], [address], 10/23/2018 06:17:28 10/22/1910/23/2018 CMP, serum or plasm a BUN/creatini ne ratio 23 12-28 Not Available [facility] ([facility]) [address] [facility], [address], 10/23/2018 06:17:28 10/22/1910/23/2018 CMP, serum or plasm a sodium 145 mmol/ L 134-14 4 above high normal Not Available [facility] ([facility]) [address] [facility], [address], 10/23/2018 06:17:28 10/22/1910/23/2018 CMP, serum or plasm a potassium 4.1 mmol/ L 3.5-5. 2 Not Available [facility] [facility]) [address] [place], [address], 10/23/2018 06:17:28 10/22/1910/23/2018 CMP, serum or plasm a chloride 106 mmol/ L 96-106 Not Available [facility] ([facility]) [address] [place], [address], 10/23/2018 06:17:28 10/22/1910/23/2018 CMP, serum or plasm a carbon dioxide, total 24 mmol/ L 20-29 Not Available [facility] ([facility]) [address] [place], [address], 10/23/2018 06:17:28 10/22/1910/23/2018 CMP, serum or plasm a calcium 9.0 mg/dL 8.7-10 .3 Not Available [facility] ([facility]) [address] [place], [address], 10/23/2018 06:17:28 10/22/1910/23/2018 CMP, serum or plasm a protein, total 6.5 g/dL 6.0-8. 5 Not Available [facility] ([facility]) [address] [place], [address], 10/23/2018 06:17:28 10/22/1910/23/2018 CMP, serum or plasm a albumin 4.1 g/dL 3.6-4. 8 Not Available [facility] ([facility]) [address] [place], [address], 10/23/2018 06:17:28 10/22/1910/23/2018 CMP, serum or plasm a globulin, total 2.4 g/dL 1.5-4. 5 Not Available [facility] ([facility]) [address] [place], [address], 10/23/2018 06:17:28 10/22/1910/23/2018 CMP, serum or plasm a A/G ratio 1.7 1.2-2. 2 Not Available [facility] ([facility]) [address] [place], [address], 10/23/2018 06:17:28 10/22/1910/23/2018 CMP, serum or plasm a bilirubin, total 0.2 mg/dL 0.0-1. 2 Not Available [facility] ([facility]) [address] [place], [address], 10/23/2018 06:17:28 10/22/1910/23/2018 CMP, serum or plasm a alkaline phosphatase 66 IU/L 39-117 Not Available [facility] ([facility]) [address] [place], [address], 10/23/2018 06:17:28 10/22/1910/23/2018 CMP, serum or plasm a AST (SGOT) 16 IU/L 0-40 Not Available [facility] ([facility]) [address] [place], [address], 10/23/2018 06:17:28 10/22/1910/23/2018 CMP, serum or plasm a ALT (SGPT) 8 IU/L 0-32 Not Available [facility] ([facility]) [address] [place], [address], 10/23/2018 06:17:28 10/22/1910/23/2018 lipid panel , serum cholesterol, total 187 mg/dL 100-19 9 Not Available [facility] ([facility]) [address] [place], [address], 10/23/2018 06:17:28 10/22/1910/23/2018 lipid panel , serum triglyceride s 54 mg/dL 0-149 Not Available [facility] ([facility]) [address] [facility] [place], [address], 10/23/2018 06:17:28 10/22/1910/23/2018 lipid panel , serum HDL cholesterol 69 mg/dL >39 Not Available [facility] ([facility]) [address] [place], [address], 10/23/2018 06:17:28 10/22/1910/23/2018 lipid panel , serum VLDL cholesterol robbie 11 mg/dL 5-40 Not Available [facility] ([facility]) [address] [facility] [place], [address], 10/23/2018 06:17:28 10/22/1910/23/2018 lipid panel , serum LDL cholesterol calc 107 mg/dL 0-99 above high normal Not Available [facility] (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) [address] [facility] [place], [address], 10/23/2018 06:17:28 10/22/1910/23/2018 HbA1c (hemo globi n A1c), blood hemoglobin A1C 5.7 % 4.8-5. 6 above high normal Predi abete s: 5.7 - 6.4 Diabe marie: >6.4 Glyce arielle contr ol for adult s with diabe marie: <7.0 Not Available [facility] ([facility]) [address] [facility], [place], [address], 10/23/2018 06:17:29 10/22/1910/23/2018 TSH, ultra -sens itive , serum TSH 2.490 uIU/m L 0.450- 4.500 Not Available [facility] ([facility]) [address] [facility], [place], [address], 10/23/2018 06:17:29 10/22/1910/23/2018 HIV 1+2 AB + HIV 1 p24 Ag, quali tativ e immun oassa y, serum HIV screen 4TH generation wrfx NON REACTI VE non reacti ve Not Available [facility] ([facility]) [address] [facility], [place], [address], 10/23/2018 06:17:30 10/22/1910/22/2018 hepat itis C Ab, signa l-to- cutof f, serum or plasm a comment: COMMEN T Non react lisa HCV antib liat scree n is consi stent with no HCV infec tion, unles s recen t infec tion is suspe cted or other evide nce exist s to indic ate HCV infec tion. Not Available [facility] ([facility]) [address] [facility], [place], [address], 10/23/2018 06:17:30 10/22/1910/23/2018 hepat itis C Ab, signa l-to- cutof f, serum or plasm a HCV Ab <0.1 s/co_ ratio 0.0-0. 9 Not Available [facility] ([facility]) [address] [facility], [place], [address], 10/23/2018 06:17:30 12/05/1912/06/2018 pap, IG + HPV, cervi robbie diagnosis: Linn GONZALEZ FOR INTRA EPITH ELIAL LESIO N OR RUBI BOCANEGRA . THIS SPECI MEN WAS RESCR EENED PART OF OUR QUALI TY CONTR OL PROGR AM. Not Available [facility] ([facility]) [address] [facility], [place], [address], 12/06/2018 14:12:00 12/05/1912/06/2018 pap, IG + HPV, cervi robbie specimen adequacy: Linn rodríguez Satis facto ry for evalu ation . No endoc ervic al compo nent is ident ified . Parti ally obscu ring thick areas are prese nt. Not Available [facility] ([facility]) [address] [facility], [place], [address], 12/06/2018 14:12:00 12/05/1912/06/2018 pap, IG + HPV, cervi robbie clinician provided ICD10: Linn rodríguez Z01.4 19 Not Available [facility] ([facility]) [address] [facility], [place], [address], 12/06/2018 14:12:00 12/05/19 19 12/06/2018 pap, IG + HPV, cervi robbie performed by: Linn Charles, Cytot echno logis t (ASCP ) Not Available [facility] ([facility]) [address] [place], [address], 12/06/2018 14:12:00 12/05/1912/06/2018 pap, IG + HPV, cervi robbie QC reviewed by: Linn conde, Super visor y Cytot echno logis t (ASCP ) Not Available [facility] ([facility]) [address] [place], [address], 12/06/2018 14:12:00 12/05/19 19 12/06/2018 pap, IG + HPV, cervi robbie . . Not Available [facility] ([facility]) [address] [place], [address], 12/06/2018 14:12:00 12/05/19 19 12/06/2018 pap, IG [...] ts do occur . Not Available [facility] ([facility]) [address] [place], [address], 12/06/2018 14:12:00 12/05/19 19 12/06/2018 pap, IG + HPV, cervi robbie test methodology: Commen t This liqui d based ThinP rep(R ) pap test was scree edie with the use of an image guide oanh meléndez. Not Available [facility] ([facility]) [address] [place], [address], 12/06/2018 14:12:00 12/05/19 19 12/06/2018 pap, IG + HPV, cervi robbie HPV aptima Negati ve negati ve This test detec ts fourt een high- risk HPV types (16/1 8/31/ 33/35 /39/4 5/ 51/52 /56/5 8/59/ 66/68 ) witho ut diffe renti ation . Not Available [facility] ([facility]) [address] [place], [address], 12/06/2018 14:12:00 12/15/19 19 12/14/2018 fecal occul t blood , stool Occult Blood negati ve Not Available In-Office Order Internal Use Only DO Not Attach Compendium DO Not Attach Compendium, Do Not Delete/merge, [id number] 12/04/2018 11:01:50 09/04/20 17 09/04/2017 MAMMO , scree bernardo, bilat eral No observ ation record ed. [facility] ([facility]) [address] [place], [address], 12/04/2018 10:57:09 09/04/20 17 09/04/2017 MAMMO , scree bernardo, bilat eral No observ ation record ed. [facility] ([facility]) [address] [place], [address], 12/04/2018 10:57:09 11/12/19 19 11/12/2018 MAMMO , scree bernardo, digit al, bilat eral No observ ation record ed. [facility] [address] [place], [address], 12/04/2018 10:57:09 Result Notes None recorded. Problems Name Problem SNOMED Code Status Onset Date Resolution Date Notes Provider Name and Address Organization Details Recorded Time Blood glucose outside reference range 970828402 Completed 201612/04/2018 5.9 7 Viet huerta [place] - [facility] 9 11:17:02 Hyperlipid emia 97962166 Active 2016 Racquel Kahn PA-C Attn: Accounting ,[address] [place], [address] , [place] - [facility] 7 09:24:01 Hypertensi ve disorder 40951188 Active 2018 Viet huerta [place] - [facility] 9 11:16:46 Prediabete s 411115516 Active 2018 A1c 5.9 Viet huerta [place] - [facility] 9 11:17:22 Bacterial vaginosis 968698357 Active Bc huerta, [place] - [facility] 6 14:28:08 Problem Notes None recorded. Procedures Surgical History Date Name Laterality Status Provider Name and Address Organization Details Recorded Time 9 Date of Last Pap Smear completed Donna Queen MA [facility] 12/04/2018 10:42:05 9 Most Recent Mammogram completed Donna Queen MA [facility] 12/04/2018 10:46:03 Imaging Results Imaging Date Name Status LastModified by Organiz ation Details LastModified Time 09/04/2017 MAMMO, screening, bilateral completed [facility] ([facility] [address] [place], [address], 12/04/2018 10:57:09 09/04/2017 MAMMO, screening, bilateral completed [facility] ([facility]) [address] [place], [address], 12/04/2018 10:57:09 11/12/2018 MAMMO, screening, digital, bilateral completed [facility] [address] [place], [address], 12/04/2018 10:57:09 Procedure Notes None recorded. Medical [...] Address Organization Details Last Updated DateTime 08/17/2017 62068.92 g 34.4 kg/m2 160.02 cm 180 mm[Hg] 110 mm[Hg] Donna Queen MA [facility] 7 10:24:36 Date Recorded Body height Body mass index (BMI) Body weight Oxygen saturation Oxygen saturation in Arterial blood by Pulse oximetry Heart rate Body temperature Systolic blood pressure Diastolic blood pressure Provider Name and Address Organization Details Last Updated DateTime 7 160.02 cm 33.9 kg/m2 51438.5 4 g 96 % 96 % 82 /min 98.3 [degF] 132 mm[Hg] 84 mm[Hg] Richa Tucker [facility] 7 10:36:23 Date Recorded Body height Body mass index (BMI) Body weight Oxygen saturation Oxygen saturation in Arterial blood by Pulse oximetry Heart rate Body temperature Systolic blood pressure Diastolic blood pressure Provider Name and Address Organization Details Last Updated DateTime 9 160.02 cm 34.3 kg/m2 03980.1 3 g 95 % 95 % 80 /min 98.4 [degF] 152 mm[Hg] 100 mm[Hg] Nina Vegas MA [facility] 9 10:31:28 Date Recorded Body height Body mass index (BMI) Body weight Systolic blood pressure Diastolic blood pressure Provider Name and Address Organization Details Last Updated DateTime 12/04/2018 160.02 cm 34.4 kg/m2 75764.92 g 142 mm[Hg] 104 mm[Hg] Donna Queen MA [facility] 9 10:48:03 Date Recorded Body height Body weight Body mass index (BMI) Systolic blood pressure Diastolic blood pressure Provider Name and Address Organization Details Last Updated DateTime 05/02/2016 160.02 cm 62414.95 793 g 33.5 kg/m2 132 mm[Hg] 90 mm[Hg] Andreina Rey MA [facility] 6 11:15:48 Social History Question Answer Notes LastModified by Organizat ion Details LastModified Time Tobacco Smoking Status Never Smoker Gage Acosta RN null, [facility] 09/12/2014 11:31:21 Do You Have An Advance Directive? Yes [email or web address] Information not available 09/12/2014 What Is Your Level Of Alcohol Consumption? None [email or web address] Information not available 09/12/2014 Is Blood Transfusion Acceptable In An Emergency? Yes [email or web address] Information not available 09/12/2014 What Is Your Level Of Caffeine Consumption? Occasional [email or web address] Information not available 09/12/2014 How Much Tobacco Do You Chew? None [email or web address] Information not available 09/12/2014 Are You Currently Employed? Yes [email or web address] Information not available 09/12/2014 What Type Of Diet Are You Following? REGULAR [email or web address] Information not available 09/12/2014 Which Illicit Or Recreational Drugs Have You Used? 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 Alone [email or web address] Information not available 09/12/2014 What Was The Date Of Your Most Recent Tobacco Screening? 12/04/2018 Information not available 04/11/2019 How Many Children Do You Have? 7 [email or web address] Information not available 09/12/2014 Performs Monthly Self-breast Exam? Yes [email or web address] Information no t available 09/12/2014 Do You Use Protection During Sex? No [email or web address] Information not available 09/12/2014 What Is Your Relationship Status? Single [email or web address] Information not available 09/12/2014 Seat Belts Used Routinely Yes Information not available 09/12/2014 Are You Sexually Active? No [email or web address] Information not available 09/12/2014 How Much Tobacco Do You Smoke? No [email or web address] Information not available 09/12/2014 General Stress Level Low [email or web address] Information not available 09/12/2014 Do You Use Sunscreen Routinely? No [email or web address] Information not available 09/12/2014 Sex: Unknown Functional Status Question Answer Note LastModified by Organizat ion Details LastModified Time What is your exercise level? Occasional [email or web address] Information not available 09/12/2014 Mental Status None [...] SNOMED-CT Code Diagnosis ICD10 Code Diagnosis Note [id number] ANDREA Oliver (HOTEL MAINTENANCE WORKER) [address] [place] [phone] 09/12/2014 11:00:22 09/12/2014 13:38:13 Gynecologic examination 23982090 History of hypertension 904483134 BP 150/110 today. Advised follow up with PCP. [id number] Sophie Julian (HOTEL MAINTENANCE WORKER) [address] [place] [phone] 0 12/08/2015 10:06:30 12/08/2015 12:04:40 Screening for osteoporosis 509283462 Z13.820 Screening mammography 24 318626 Z12.31 Gynecologi c examination 98983737 Z01.419 BP elevated. Recommende d follow up with PCP. [id number] Aimee Julian (HOTEL MAINTENANCE WORKER) [address] [place] [phone] 0 05/02/2016 10:49:27 05/06/2016 16:06:10 Gynecologic examination 48242607 Z01.419 BP elevated. Recommende d follow up with PCP. [id number] Viet Julian (HOTEL MAINTENANCE WORKER) [address] [place] [address] [phone] 0 08/17/2017 09:52:18 08/17/2017 11:10:47 Screening mammography 19512453 Z12.31 Essential hypertension 80005721 I10 Patient was sent directly to Urgent Care/ER, BP was 180/522 [id number] BETTINA Greenwood (Adult Med) [address] [place] [address] [phone] 0 09/06/2017 10:04:29 09/06/2017 12:14:23 Adult health examination 504742034 Z00.01 Screening for disorder 141086680 Z13.9 Family his tory of Hypertension 676853396 Z82.49 Obesity 153851160 E66.9 Advised 30 minutes of exercise 5 days/week Advised to not drink her calories Advised 3 balanced meals/day with plenty of fruits and vegetables Screening for malignant neoplasm of colon 799133036 Z12.11 [id number] MARIOLA Cabello (Adult Med) [address] [place] [address] [phone] 0 10/22/2018 10:22:06 10/23/2018 12:56:59 Adult health examination 258368031 Z00.01 Screening for disorder 346298297 Z13.9 Family his tory of Hypertension 221265821 Z82.49 BP 152/100 Patient will RTC in two week for BP heck Obesity 295332817 E66.9 Advised 30 minutes of exercise 5 days/week Advised to not drink her calories Advised 3 balanced meals/day with plenty of fruits and vegetables Screening for malignant neoplasm of colon 497847550 Z12.11 never colonoscop y, but would like to do it in the spring. Screening mammography 24 093749 Z12.31 [id number] Viet Gunnernicol Julian (HOTEL MAINTENANCE WORKER) [address] [place] [phone] 0 12/04/2018 09:59:23 12/04/2018 16:05:41 Gynecologic examination 15338499 Z01.419 HPV+ pap in 2016 Screening for malignant neoplasm of colon 949494980 Z12.11 Hypertensive disorder 38 307387 I10 Prediabetes 239112190 R7 3.03 Menopausal syndrome 1237 80369 N95.9 Health Concerns Section Related Observation LastModified by Organization Detai ls LastModified Time None Recorded Concern Status LastModified by Organization Details LastModified Time None Recorded Advance Directives Directive Y: Payers Encounter Date Sequence Insurance Name Policy Number Policy Jones Covered Member ID Jones Member ID Guarantor Name 05/02/2016 1 [facility] [place] [id number] Alida Carlton [id number] Alida Carlton 08/17/2017 [facility] Alida Carlton [id number] Alida Carlton 10/22/2018 1 [facility] [id number] Alida Carlton [id number] Alida Carlton 12/04/2018 1 [facility] [id number] Alida Carlton [id number] Alida Carlton 12/04/2018 2 [place] Alida Carlton [id number] Alida Carlton Notes Date Note Type Note Provider Name and Address Organization Details Recorded Time 05/02/2016 text/html Annual GYNReported bypatient.History :no gynecologic complaints Menstrual cycle:postmenopau shaji Urinary symptoms:No hematuria; no dysuria Vulva:No genital lesion Breast:No breast pain; No breast lump; No nipple discharge Bc huerta, [facility] 05/02/2016 15:53:47 08/17/2017 text/html 62 yo aaf presents for CBE + Mamm Viet huerta, [facility] 08/17/2017 12:30:27 09/06/2017 text/html 62YO AA female [...] through some issues with her son and xmezxnfy-ap-pae but those have now resolved and knows that that is why her BP was elevated. Racquel Kahn PA-C Attn: Accounting,[address] [facility], [place], [address], [facility] 09/06/2017 11:12:05 10/22/2018 text/html Patient presente d today for yearly lab work and mammogram,denies having any complaint today. 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 Viet huerta [facility] 12/04/2018 14:09:25 OBGyn Episode No OBEpisode recorded.
--- OUTSIDE RECORDS SUMMARY | 2024-12-16 09:54 | XMS_ITS | Encounter Summary ---
Author Organization [facility] Address [address] [place] [address] Care Team Providers Care Hot Walker Name Role Phone Sharonda Esqueda MD Primary Care Provider [phone] Encounter Details Date Type Department Care Team (Late Contact Info) Description 04/01/2020 Chart Note [facility] Radiation Therapy [address] [place] [address] [place] [address] [place] [address] Social History Tobacco Use Types [...] 12/23/2024 4:30 PM CDT Telephone Check Up [facility] Oncology and Hematology - [facility]7 Jonathan Merino [address] [place] [address] Dawson Jara MD [address] [facility] [address] [place] [phone] 06/27/2025 8:30 AM CDT Office Visit [facility] Oncology and Hematology [facility] [address] [place] [address] Dawson Jara MD [address] [facility] [address] [place] [phone] documented as of this encounter Visit Diagnoses Not on filedocumented in this encounter Care Teams Hot Walker Relationship Specialty Start Date End Date Sharonda Esqueda MD PCP - General Internal Medicine 01/22/20 documented as of this encounter
--- OUTSIDE RECORDS SUMMARY | 2024-12-16 09:54 | XMS_ITS | Clinical Summary ---
Author Organization [facility] Address [address] [place] [address] Phone Care Team Providers Care Credit Reference Clerk Name Role Phone Sharonda Esqueda MD Primary Care Provider [phone] Social History Tobacco Use Types Packs/Day Years [...] Procedure Name Priority Date/Time Associated Diagnosis Comments [facility] BONE DENSITOMETRY AXIAL SKELETON Routine 07/13/2019 9:19 AM CDT Osteopenia, unspecified location [facility] SCREENING BILATERAL DIGITAL W CAD Routine 01/06/2016 9:44 AM CDT Encounter for screening mammogram for malignant neoplasm of breast from Last 3 Months or Most Recently Relevant to Health Maintenance Results * [facility] BONE DENSITOMETRY AXIAL SKELETON (07/13/2019 [...] Narrative 07/13/2019 9:47 AM CDT EXAM DESCRIPTION: [facility] BONE DENSITOMETRY AXIAL SKELETON REASON FOR STUDY: 63 year old female with given history of other specified disorders of bone density and structure, unspecified site. 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 MD: Report ID: [id number] Reading Location: [id number] Procedure Note Chava Bobo MD - 07/13/2019 EXAM DESCRIPTION: [facility] BONE DENSITOMETRY AXIAL SKELETON REASON FOR STUDY: 63 year old female with given history of other specified disorders of bone density and structure, unspecified site. Roller Staker/Model: [employer] (S/N [id number]) CLINICAL INFORMATION: Current height: 63 inches Maximum [...] by Chava Bobo M.D. MD: Report ID: [id number] Reading Location: [place] [address] IMPRESSION: Normal bone mineral density. No significant [...] to exams dated: 09/22/2014, 09/06/2013, and 08/21/2012 [facility]. BREAST TISSUE: The tissue of both [...] signed by: Kristine Watters M.D. pw/:01/14/2016 08:59:57 Certified Physician'S Assistant: Kendra AMBRIZ(Penny)(Clarissa), [facility] letter sent: Normal Exam Reading location: [facility] BI-RADS: 2 Benign Procedure Note Kristine [...] to exams dated: 09/22/2014, 09/06/2013, and 08/21/2012 [facility]. BREAST TISSUE: The tissue of both [...] signed by: Kristine Watters M.D. pw/:01/14/2016 08:59:57 Certified Physician'S Assistant: Kendra CUNNINGHAM)(M), [facility] letter sent: Normal Exam Reading location: [facility] BI-RADS: 2 Benign Bc Berman MD IMG MAMMO ORDERABLES Final R esult from Last 3 Months or Most Recently Relevant to Health Maintenance [facility] file Care Teams Credit Reference Clerk Relationship Specialty Start Date End Date Sharonda Esqueda MD [facility] [place] [phone] PCP - General Internal Medicine 07/13/19
--- OUTSIDE RECORDS SUMMARY | 2024-12-16 09:54 | XMS_ITS ---
Author Organization [facility] Address [address] [facility] [address] [address] Care Team Providers Care Canteen Manager Name Role Phone Bassam Connors DPM Primary Care Provider [phone] Encounters Encounter Location Date Provider Diagnosis [facility] [address] [facility] [address] [address] 05/10/2024 Bassam Connors DPM PLAN OF TREATMENT No Information
--- OUTSIDE RECORDS SUMMARY | 2024-12-16 09:54 | XMS_ITS | Patient Health Record ---
Author Organization [facility] Address [address] [address] Care Team Providers Care Apparel Patternmaker Name Role Phone Bassam Connors DPM Primary Care Provider REASON FOR REFERRAL No Information SOCIAL HISTORY Sex Assigned At : Social History Observation Description Sex Assigned At Unknown Encounters Encounter Location Date Provider Diagnosis [facility] [address] [address] 05/10/2024 Bassam Connors DPM PLAN OF TREATMENT No Information
--- OUTSIDE RECORDS SUMMARY | 2024-12-16 09:54 | XMS_ITS | Clinical Summary ---
Author Organization [facility] Address [address] [place] [address] Care Team Providers Care Instrument Engineer Name Role Phone Sharonda Esqueda MD Primary Care Provider +1- [phone] Allergies No known active allergies Medications lisinopriL [...] Esqueda MD Referring Provider: Sharonda Esqueda MD [address] [place] [address] [place] [address] Other: Dr. Patience Shearer MD Problem Noted Date Diagnosed Date History of left breast cancer 02/21/2023 Malignant neoplasm of upper- outer quadrant of left breast in female, estrogen receptor positive 01/30/2020 Encounters Date Type Department Care Team Description 12/16/2024 8:45 AM CDT Office Visit [facility] - [place] [address] [place] [address] Dawson Jara MD Malignant neoplasm of upper-outer quadrant of left breast in female, estrogen receptor positive (CMS/HCC) (Primary Dx); Anemia, chronic disease 12/05/2024 Orders Only [facility] - [place] [address] [place] [address] Dawson Jara MD 12/04/2024 Orders Only [facility] - [place] [address] [place] [address] Dawson Jara MD 12/02/2024 Orders Only [facility] - [place] [address] [place] [address] Dawson Jara MD 11/19/2024 Refill [facility] - [place] [address] [place] [address] Dawson Jara MD Malignant neoplasm of upper-outer [...] oz) 12/16/2024 8:44 A M CDT Height 160 cm (5' 3 ) 02/21/2023 9:56 AM CDT Body Mass Index 33.41 02/21/2023 9:56 AM CDT Plan of Treatment Upcoming Encounters Date Type Department Care Team (Late st Contact Info) Description 12/23/2024 4:30 PM CDT Telephone Check Up [facility] [address] [place] [address] Dawson Jara MD [address] [place] [phone] 06/27/2025 8:30 AM CDT Office Visit [facility] [address] [place] [address] Dawson Jara MD [address] [place] [phone] Health Maintenance Due Date Last Done Comments DTAP/TDAP/TD VACCINES (1 - Tdap) 1972 COLORECTAL SCREENING 1998 Colorectal Cancer Screening 1998 FIT-DNA Q 3 years 1998 FIT/FOBT Q 1 year 1998 Flex Sig/CT Colonography Q 5 years 1998 PNEUMOCOCCAL VACCINE 50+ YEA RS (1 of 1 - PCV) 2003 ZOSTER VACCINE (1 of 2) 2003 INFLUENZA VACCINE (#1) 2024 [place] Preventative Visit/Annual Wellness Visit 09/18/2024 12/04/2018 BREAST CANCER SCREENING 05/02/2025 05/02/20 24, 02/21/2023, 02/16/2022, Additional history exists RSV VACCINE (60+ or ) (1 - 1-dose 75+ series) 2028 OSTEOPOROSIS SCREENING Completed , 07/13/2019, 01/06/2016 Medical Devices Implanted Type Area Welt Slasher Device Identifier Shelf Expiration Date Model / Serial / Lot Sausage Stuffer Clip Surgiclip Ii Ricardo 9.75in [id number] - [id number] Implanted:Qty : 1 on 03/09/2020 by Patience Shearer MD at [facility] Clip Left: Breast [employer] - COVIDIEN [id number] 06/17/2024 [id number] / / [id number] Hemostatic Surgicel 2x14in 1950 - [id number] Implanted:Qty : 1 on 03/09/2020 by Patience Shearer MD at [facility] Hemostatic Left: Breast [employer] [id number] 05/18/20241950 / / [id number] Procedures Procedure Name Priority Date/Time Associated Diagnosis Comments BASIC METABOLIC PANEL Routine 12/02/2024 2:27 PM CDT COMPREHENSIVE METABOLIC PANEL Routine 12/02/2024 1:08 PM CDT CANCER ANTIGEN 15-3 Routine 12/02/2024 8 :38 AM CDT MAMMO 3D KD DIAGNOSTIC BILAT W OR WO CAD Routine 05/02/2024 7:52 AM CDT History of left breast cancer from Last 3 Months or Most Recently Relevant to Health Maintenance Results * BASIC METABOLIC PANEL (12/02/2024 2:27 PM CDT) Blood us Dawson Jara MD CHEMISTRY ORDERABLES Final Resu lt * COMPREHENSIVE METABOLIC PANEL (12/02/2024 1:08 PM CDT) Blood us Dawson Jara MD CHEMISTRY ORDERABLES Final Resu lt * CANCER ANTIGEN 15-3 (12/02/2024 8:38 AM CDT) Blood us Dawson Jara MD CHEMISTRY ORDERABLES Final Resu lt * MAMMO DIAG BILAT 3D KD W OR WO CAD (05/02/2024 7:52 AM CDT) Anatomical Region Laterality Modality Breast Bilateral Mammography 05/02/2024 7:52 AM CDT Impressions 05/02/2024 8:46 AM CDT IMPRESSION: No suspicious findings to suggest malignancy in either breast. Annual mammography is recommended. OVERALL FINAL ASSESSMENT: BI-RADS CATEGORY 2 - Benign findings. DICTATION LOCATION: [facility] 05/02/2024 8:46 AM CDT BILATERAL FULL-FIELD DIGITAL [...] CATEGORY 2 - Benign findings. DICTATION LOCATION: [facility] Patience Shearer MD MAMMO ORDERABLES Final R esult from Last 3 Months or Most Recently Relevant to Health Maintenance Insurance RX OPTUM RX Member Subscriber Plan / Payer (Ef fective 2018-Present) Name:Alida Carlton Relation to Subscriber:Self Name:Alida Carlton Payer ID:Not on file Group ID:[id number] Type:RX Medicare Part D Address: [address] [place] Care Teams Instrument Engineer Relationship Specialty Start Date End Date Sharonda Esqueda MD PCP - General Internal Medicine 01/22/20
[2024-12-16 12:15] LABS: Iron 85 ug/dL (37-170)
[2024-12-16 14:40] LABS: Percent Iron Saturation 31 % (20-50)
== END 2024-12-16 09:13 | disposition home or self-care (01) ==
LOC: ANHLAB 09:13
PROVIDERS: PCP Internal Medicine; Visit Provider Internal Medicine Hematology & Oncology
DX: D63.8 Anemia in other chronic diseases classified elsewhere (principal)
CPT/HCPCS: 36415; 82607; 82728; 83540; 83550

== ENCOUNTER 2025-05-13 10:04 | Outpatient (CLI) | payer MEDICARE, SELFPAY ==
--- OUTSIDE RECORDS SUMMARY | 2025-05-13 10:35 | XMS_ITS | Clinical Summary ---
Author Organization [facility] Address [address] [place] [address] Phone Care Team Providers Care Drilling Machine Runner Name Role Phone Sharonda Esqueda MD Primary Care Provider [phone] Social History Tobacco Use Types Packs/Day Years [...] 9:19 AM CDT Height 160 cm (5' 3) 07/13/2019 9:19 AM CDT Body Mass Index 32.77 07/13/2019 9:19 AM CDT Plan of Treatment Health Maintenance Due Date Last Done Comments Hepatitis C Virus (HCV) Screening 1955 TdaP Immunization 1955 Cologuard 1998 Colonoscopy 1998 Colorectal Cancer Screening 1998 Immunochemical Fecal Occult Blood 1998 Pneumococcal Immunization (5 0+ years) (1 of 1 - PCV) 2003 Zoster Immunization (1 of 2) 2003 SARS-COV-2 Immunization ( season) 2024 09/28/2021, 02/20/2021, 01/30/2021 Influenza Immunization (#1) 2025 Respiratory Syncytial Virus (RSV) Immunization (Adult) (1 - 1-dose 75+ series) 2028 Mammogram Discontinued 01/06/2016 DEXA Bone Density Discontinued 07/13/2019, 01/06/2016 Hepatitis B Immunization Aged Out No longer eligible based on patient's age to complete this topic Human Papillomavirus (HPV) Immunization Aged Out No longer eligible based on patient's age to complete this topic Meningococcal Immunization (ACWY) Aged Out No longer eligible based on patient's age to complete this topic Rotavirus Immunization Aged Out No lo nger eligible based on patient's age to complete this topic Procedures Procedure Name Priority Date/Time Associated Diagnosis Comments [facility] BONE DENSITOMETRY AXIAL SKELETON Routine 07/13/2019 9:19 AM CDT Osteopenia, unspecified location [facility] SCREENING BILATERAL DIGITAL W CAD Routine 01/06/2016 9:44 AM CDT Encounter for screening mammogram for malignant neoplasm of breast from Last 3 Months or Most Recently Relevant to Health Maintenance Results * [facility] BONE DENSITOMETRY AXIAL SKELETON (07/13/2019 9:19 AM [...] Narrative 07/13/2019 9:47 AM CDT EXAM DESCRIPTION: [facility] BONE DENSITOMETRY AXIAL SKELETON REASON FOR STUDY: 63 year old female with given history of other specified disorders of bone density and structure, unspecified site. Shoulder Sawyer/Model: [employer] (S/N [id number]) CLINICAL INFORMATION: Current height: 63 inches Maximum [...] AM - Electronically signed by Chava Bobo M.D., MD: Report ID: [id number] Reading Location: [id number] Procedure Note Chava Bobo MD - 07/13/2019 EXAM DESCRIPTION: [facility] BONE DENSITOMETRY AXIAL SKELETON REASON FOR STUDY: 63 year old female with given history of other specified disorders of bone density and structure, unspecified site. Shoulder Sawyer/Model: [employer] (S/N [id number]) CLINICAL INFORMATION: Current height: 63 inches Maximum [...] by Chava Bobo M.D. MD: Report ID: [id number] Reading Location: [place] [address] IMPRESSION: Normal bone mineral density. No significant [...] to exams dated: 09/22/2014, 09/06/2013, and 08/21/2012 [facility]. BREAST TISSUE: The tissue of both [...] signed by: Kristine Watters M.D. pw/:01/14/2016 08:59:57 Process Development Associate: Kendra AMBRIZ(R)(M), [facility] letter sent: Normal Exam Reading location: [facility] BI-RADS: 2 Benign Procedure Note Kristine Watters [...] to exams dated: 09/22/2014, 09/06/2013, and 08/21/2012 [facility]. BREAST TISSUE: The tissue of both [...] signed by: Kristine Watters M.D. pw/:01/14/2016 08:59:57 Process Development Associate: Kendra AMBRIZ(R)(M), [facility] letter sent: Normal Exam Reading location: [facility] BI-RADS: 2 Benign us Bc Berman MD IMG MAMMO ORDERABLES Final R esult from Last 3 Months or Most Recently Relevant to Health Maintenance Insurance [facility] on file Care Teams Drilling Machine Runner Relationship Specialty Start Date End Date Sharonda Esqueda MD [employer] [place] [id number] PCP - General Internal Medicine 07/13/19
--- OUTSIDE RECORDS SUMMARY | 2025-05-13 10:35 | XMS_ITS | Clinical Summary ---
Author Organization [facility] Tammie cristhian [facility] Address [address] [address] Care Team Providers Care Jboss Architect Name Role Phone Sharodna Esqueda MD Primary Care Provider [phone] Allergies No known active allergies Medications lisinopriL (PRINIVIL) 10 mg tablet lisinopril 10 mg tablet 1 PO daily Active hydroCHLOROthia zide 25 mg tablet Take 25 mg by mouth daily. Active calcium carbonate/vitam in D3 (CALCIUM 500 + D ORAL) Take by mouth. A ctive ergocalciferol (VITAMIN D2) 50,000 unit capsule Take 1 Capsule (50,000 Units) by mouth every 7 days. 12 Capsule 0 Active anastrozole (ARIMIDEX) 1 mg tabletIndicatio ns:Malignant neoplasm of upper-outer quadrant of left breast in female, estrogen receptor positive (CMS/HCC) Take 1 tablet by mouth once daily 90 Tablet 5 Active Active Problems Patient Care Coordination No te Formatting of this note migh t be different from the original. Primary Care: Sharonda Esqueda MD Referring Provider: Sharonda Esqueda MD [address] [place] [address] [place] [address] Other: Dr. Patience Shearer MD Problem Noted Date Diagnosed Date History of left breast cancer 02/21/2023 Malignant neoplasm of upper- outer quadrant of left breast in female, estrogen receptor positive 01/30/2020 Encounters Date Type Department Care Team Description 05/06/2025 External Device Data ST[facility] ABSTRACTION Provider, Abstract 04/29/2025 External Device Data [facility] ABSTRACTION Provider, Abstract 04/02/2025 External Device Data [facility] ABSTRACTION Provider, Abstract 04/01/2025 External Device Data [facility] ABSTRACTION Provider, Abstract 03/05/2025 External Device Data [facility] ABSTRACTION Provider, Abstract 02/18/2025 [facility] Oncology and Hematology [place] [address] [address] [place] [address] Dawson Jara MD Malignant neoplasm of upper-outer quadrant of left breast in female, estrogen receptor positive (CMS/HCC) from Last 3 Months Family History Medical [...] A M CDT Height 160 cm (5' 3) 02/21/2023 9:56 AM CDT Body Mass Index 33.41 02/21/2023 9:56 AM CDT Plan of Treatment Upcoming Encounters Date Type Department Care Team (Late st Contact Info) Description 06/27/2025 8:30 AM CDT Office Visit [facility] - [place] [address] [facility] [address] [place] [address] Dawson Jara MD [address] [facility] [address] [place] [address] Health Maintenance Due Date Last Done Comments DTAP/TDAP/TD VACCINES (1 - Tdap) 1972 COLORECTAL SCREENING 1998 Colorectal Cancer Screening 1998 FIT-DNA Q 3 years 1998 FIT/FOBT Q 1 year 1998 Flex Sig/CT Colonography Q 5 years 1998 PNEUMOCOCCAL VACCINE 50+ YEA RS (1 of 1 - PCV) 2003 ZOSTER VACCINE (1 of 2) 2003 OSTEOPOROSIS SCREENING 07/13/2024 9, 07/13/2019, 01/06/2016 INFLUENZA VACCINE (#1) 2025 BREAST CANCER SCREENING 05/02/2025 05/02/20 24, 02/21/2023, 02/16/2022, Additional history exists RSV VACCINE (60+ or ) (1 - 1-dose 75+ series) 2028 Medical Devices Implanted Type Area Seafood Preparer Device Identifier Shelf Expiration Date Model / Serial / Lot Vice Investigator Clip Surgiclip Ii Ricardo 9.75in [id number] - [id number] Implanted:Qty : 1 on 03/09/2020 by Patience Shearer MD at [facility] Clip Left: Breast [employer] - COVIDIEN [id number] 06/17/2024 [id number] / / [id number] Hemostatic Surgicel 2x14in 1950 - [id number] Implanted:Qty : 1 on 03/09/2020 by Patience Shearer MD at [facility] Hemostatic Left: Breast [employer]- [employer] [id number] 05/18/20241950 / / [id number] Procedures Procedure Name Priority Date/Time Associated Diagnosis [...] diagnosis was performed. COMPARISON: 2022 mammography and BREAST COMPOSITION: There are scattered areas of [...] - Benign findings. DICTATION LOCATION: [facility] Patience Shearer MD MAMMO ORDERABLES Final R esult from Last 3 Months or Most Recently Relevant to Health Maintenance Insurance RX OPTUM RX Member Subscriber Plan / Payer (Ef fective 2018-Present) Name:Alida Carlton Relation to Subscriber:Self Name:Alida Carlton Payer ID:Not on file Group ID:[id number] Type:RX Medicare Part D Address: [address] [place] Care Teams Jboss Architect Relationship Specialty Start Date End Date Sharonda Esqueda MD PCP - General Internal Medicine 01/22/20
--- OUTSIDE RECORDS SUMMARY | 2025-05-13 10:35 | XMS_ITS ---
Author Organization [facility] Address [address] [place] [address] Care Team Providers Care Food And Beverage Associate Name Role Phone Sharonda Esqueda MD Primary Care Provider +1- [phone] Active Problems Patient Care Coordination No te Formatting of this note migh t be different from the original. Primary Care: Sharonda Esqueda MD Referring Provider: Sharonda Esqueda MD [address] [place] [address] [place] [address] Other: Dr. Patience Shearer MD Problem Noted [...]
--- OUTSIDE RECORDS SUMMARY | 2025-05-13 10:35 | XMS_ITS | Encounter Summary ---
Author Organization [facility] Address [address] [place] [address] Care Team Providers Care Gas Mask Inspector Name Role Phone Sharonda Esqueda MD Primary Care Provider +1- [phone] Encounter Details Date Type Department Care Team (Late Contact Info) Description 04/01/2020 Chart Note [facility] Radiation Therapy [address] [place] [address] [place] [address] [place] [address] Social History Tobacco Use Types [...] Description 06/27/2025 8:30 AM CDT Office Visit [facility] and Hematology - [place] [address] [address] Dawson Jara MD [address] [facility] [address] [place] [address] documented as of this encounter Visit Diagnoses Not on filedocumented in this encounter Care Teams Gas Mask Inspector Relationship Specialty Start Date End Date Sharonda Esqueda MD PCP - General Internal Medicine 01/22/20 documented as of this encounter
--- OUTSIDE RECORDS SUMMARY | 2025-05-13 10:35 | XMS_ITS | Encounter Summary ---
Author Organization [facility] Address [address] [place] [address] Care Team Providers Care Dragger Name Role Phone Sharonda Esqueda MD Primary Care Provider +1- [phone] Reason for Visit * Reason Comments Medication Refill Encounter Details Date Type Department Care Team ([facility] Contact Info) Description 10/09/2021 Refill [facility] Oncology and Hematology - [place] [address] [facility] [address] [place] [address] Dawson Jara MD [address] [facility] [address] [place] [address] Malignant neoplasm of upper-outer quadrant [...] COVID-19? No / Unsure 10/07/2021 8:56 AM PUBLIC RELATIONS ASSOCIATE documented as of this encounter Plan of Treatment Upcoming Encounters Date Type Department Care Team ([facility] Contact Info) Description 06/27/2025 8:30 AM CDT Office Visit [facility] Oncology and Hematology [facility] [address] [facility] [address] [place] [address] Dawson Jara MD [address] [facility] [address] [place] [address] documented as of this encounter Visit Diagnoses Diagnosis Malignant neoplasm of upper-outer quadrant of left breast in female, estrogen receptor positive (CMS/HCC) documented in this encounter Care Teams Dragger Relationship Specialty Start Date End Date Sharonda Esqueda MD PCP - General Internal Medicine 01/22/20 documented as of this encounter
[2025-05-13 14:33] LABS: Hematocrit 35.8 % (37.0-47.0); Hemoglobin 10.9 g/dL (12.0-15.0); Immature Granulocyte Percent A 0.4 % (0-0.5); Lymphocytes Absolute Auto 2.31 K/mm3 (0.9-3.2); Mean Corpuscular HGB Conc 30.4 g/dl (32-36); Mean Corpuscular Hemoglobin 30.6 pg (26-34); Mean Corpuscular Volume 100.6 fl (80-100); Nucleated Red Blood Cells Absolute Auto 0.000 K/mm3 (0.0-0.012); Nucleated Red Blood Cells Perc 0.0 % (0.0-0.2); Platelet Count Result 229 k/mm3 (150-375); Red Blood Count 3.56 M/mm3 (4.2-5.4); White Blood Count 5.5 K/mm3 (4.5-10.0)
[2025-05-13 14:51] LABS: Alanine Aminotransferase 19 U/L (6-35); Albumin Level 4.2 g/dL (3.5-5.1); Alkaline Phosphatase 63 U/L (38-126); Anion Gap 3 mmol/L (4-12); Aspartate Amino Transferase 60 U/L (14-36); Bilirubin,Total 0.8 mg/dL (0.2-1.3); Blood Urea Nitrogen 15 mg/dL (7-17); Calcium 9.2 mg/dL (8.4-10.2); Carbon Dioxide 30 mmol/L (22-30); Chloride 104 mmol/L (98-107); Cholesterol 197 mg/dL (0-200); Estimated Glomerular Filt Rate > 60; Glucose 87 mg/dL (65-110); HDL Direct 64 mg/dL; Potassium 4.1 mmol/L (3.4-5.0); Sodium 137 mmol/L (137-145); Total Protein 7.4 g/dL (6.3-8.2); Triglycerides 76 mg/dL (<150)
[2025-05-13 14:59] LABS: MALB Creatinine Ratio 5.9 mg/g (0-30)
[2025-05-13 15:00] LABS: Iron 64 ug/dL (37-170)
[2025-05-13 15:09] LABS: Percent Iron Saturation 24 % (20-50)
[2025-05-13 15:19] LABS: Hemoglobin A1C 4.8 % (<5.7)
[2025-05-13 15:28] LABS: Thyroid Stimulating Hormone 2.460 uIU/mL (0.465-4.680)
[2025-05-13 15:40] LABS: Ferritin 94.10 ng/mL (11.1-264)
[2025-05-13 15:47] LABS: Vitamin B12 869.0 pg/mL (239-931)
== END 2025-05-13 10:05 | disposition home or self-care (01) ==
PROVIDERS: PCP Internal Medicine; Visit Provider Clinical Nurse Specialist
DX: D64.9 Anemia, unspecified (principal); I10 Essential (primary) hypertension; Z13.228 Encounter for screening for other metabolic disorders; R73.01 Impaired fasting glucose; R74.8 Abnormal levels of other serum enzymes
CPT/HCPCS: 36415; 80053; 80061; 82043; 82607; 82728; 83036; 83540; 83550; 84443; 85025